=== PATIENT | female | born 1930 | race Caucasian/White ===

== ENCOUNTER 2017-05-01 18:32 | Inpatient (IN) | payer OTHER ==
[~2017-05-01] VITALS: Ht 157.5 cm; Wt 79.6 kg
[2017-05-01] MEDS ORDERED: fentaNYL PF VIAL 100 MCG/2 ML VIAL ONE (19:12)
[2017-05-01] MEDS: fentaNYL PF VIAL 100 MCG/2 ML VIAL IV PRN ×6 (19:19→23:10)
--- NOTE | 2017-05-01 19:57 | RAD ---
PQRS Compliance Statement: One or more of the following individualized dose reduction techniques were utilized for this examination: 1. Automated exposure control 2. Adjustment of the mA and/or kV according to patient size 3. Use of iterative reconstruction technique CT HEAD AND CERVICAL SPINE WITHOUT CONTRAST History: fall injury to head Comparison: None. Procedure: Axial images are obtained of the head from the skull base through the vertex without IV contrast. Noncontrast helical CT of the cervical spine was performed. Axial, sagittal, and coronal reconstructions were obtained. Findings: The ventricles and sulci are prominent, consistent with age-related cerebral atrophy. There is scattered periventricular white matter hypoattenuation. This is a nonspecific finding but is commonly due to chronic small vessel ischemic disease in a patient of this age. No mass-effect, midline shift, hemorrhage or obvious acute infarction is identified. Basilar cisterns are patent. Bone windows demonstrate no significant calvarial abnormality. There is severe high left frontal scalp hematoma. The visualized paranasal sinuses are clear. Mastoid air cells are well aerated. There is no evidence of acute fracture or acute malalignment. Minimal grade 1 anterolisthesis of C3 on C4. Alignment is otherwise maintained. The facet joints are intact, mildly hypertrophic. Geographic sclerosis left lateral mass of C1 may be a bone island. Visualized soft tissues of the neck demonstrate no significant abnormalities. The visualized lung apices are clear. IMPRESSION: 1. No acute intracranial abnormality. 2. Large high left frontal scalp hematoma. 3. No acute fracture of the cervical spine. Electronically signed by: Himanshu Solorzano MD (05/01/2017 7:54 PM)
[2017-05-01] MEDS ORDERED: fentaNYL PF VIAL 100 MCG/2 ML VIAL IV PRN (21:15)
[2017-05-01 21:56] LABS: BASO # 0.1 x10^3/uL (0.0-0.2); BASO % 1 % (0-3); EOS % 0 % (0-3); HEMATOCRIT 36.3 % (36.0-47.0); LYMPH # 0.8 x10^3/uL (1.0-4.8); LYMPH % 8 % (24-48); MEAN CORPUSCULAR HEMOGLOBIN 28 pg (25-35); MEAN CORPUSCULAR HGB CONC 33 g/dL (31-37); MEAN CORPUSCULAR VOLUME 86 fL (79-100); MONO % 4 % (0-9); NEUT % 87 % (31-73); PLATELET COUNT 204 x10^3/uL (140-400); RED BLOOD COUNT 4.25 x10^6/uL (3.50-5.40); RED CELL DISTRIBUTION WIDTH 15.6 % (11.5-14.5); WHITE BLOOD COUNT 10.1 x10^3/uL (4.0-11.0)
[2017-05-01] MEDS ORDERED: MORPHINE SULFATE 2 MG/ML DISP.SYRIN. IV PRN (22:00)
[2017-05-01] MEDS ORDERED: PROCHLORPERAZINE 25 MG SUPP.RECT. PR PRN (22:00)
[2017-05-01] MEDS ORDERED: hydrALAZINE 20 MG/ML VIAL. IVP PRN (22:00)
[2017-05-01] MEDS ORDERED: CALCIUM CARBONATE 500 MG TAB.CHEW PO PRN (22:00)
[2017-05-01] MEDS ORDERED: LACTULOSE 20 GM/30 ML SOLUTION. PO PRN (22:00)
[2017-05-01] MEDS ORDERED: BISACODYL 10 MG SUPP.RECT. PR PRN (22:00)
[2017-05-01] MEDS ORDERED: PROCHLORPERAZINE 10 MG/2 ML VIAL. IV PRN (22:00)
[2017-05-01] MEDS ORDERED: MAGNESIUM HYDROXIDE 2,400 MG/30 ML ORAL.SUSP. PO PRN (22:00)
[2017-05-01] MEDS ORDERED: MAG HYDROX/ALUMINUM HYD/SIMETH 30 ML ORAL.SUSP PO PRN (22:00)
[2017-05-01] MEDS ORDERED: IBUPROFEN 400 MG TABLET. PO PRN (22:00)
[2017-05-01] MEDS ORDERED: ACETAMINOPHEN 325 MG TABLET. PO PRN (22:00)
[2017-05-01 22:07] LABS: CALCIUM 9.8 mg/dL (8.5-10.1); CREATININE 1.1 mg/dL (0.6-1.0); GFR 47.1; POTASSIUM 3.7 mmol/L (3.5-5.1)
[2017-05-01 22:08] LABS: INR 1.1 (0.8-1.1); PROTHROMBIN TIME PATIENT 13.2 SEC (11.7-14.0)
[2017-05-01 22:13] LABS: ALBUMIN 3.6 g/dL (3.4-5.0); ALBUMIN/GLOBULIN RATIO 0.9 (1.0-1.7); TOTAL BILIRUBIN 0.7 mg/dL (0.2-1.0); TOTAL PROTEIN 7.6 g/dL (6.4-8.2)
--- NOTE | 2017-05-01 22:36 | PDOC1 ---
History and Physical Date of Admission Date of Admission DATE: 05/01/17 TIME: 22:29 Identification/Chief Complaint Chief Complaint fall Problems: Source Source: Caregiver, Chart review, Patient History of Present Illness History of Present Illness 87 y/o female, who usually goes to , tripped on her back yard today , hit her head, no LOC, sustained a left frontal hematoma that is visible and actually has come down in size per family at bedside. Hit her left arm and xray shows a humeral fx, Pt then admitted, Course in ER, has been requiring significant doses of fentanyl. PAst medical is only HTN and hypothyroidism, takes only 3 Prescription meds. PAin level now 8./10, VS ok. C spine is neg for fx,. NO assistive device at home,. NO known lung or heart probs. Non smoker, non drinker Itches with codeine and toradol Seen at ER [address] head and xray Rt arm Past Medical History Cardiovascular: HTN Endocrine: Hypothyroidism Past Surgical History Past Surgical History: Other (back sx??) Family History Family History: Hypertension Social History Smoke: No ALCOHOL: none Drugs: None Current Medications Current Medications Current Medications Fentanyl Citrate (Fentanyl 2ml Vial) 25 mcg PRN Q15MIN PRN IV PAIN GREATER THAN 3/10 Last administered on 05/01/17t 22:08; Start 05/01/17 at 19:00; Stop at 18:59 Fentanyl Citrate (Fentanyl 2ml Vial) 100 mcg STK-MED ONCE .ROUTE ; Start at 19:12; Stop 05/01/17 at 19:13; Status DC Fentanyl Citrate (Fentanyl 2ml Vial) 25 mcg PRN Q15MIN PRN IV PAIN GREATER THAN 3/10; Start 05/01/17 at 21:15; Stop 05/02/17 at 21:14 Hydralazine HCl (Apresoline) 10 mg PRN Q4HRS PRN IVP 160/100; Start 05/01/17 at 22:00 Ondansetron HCl (Zofran) 4 mg PRN Q6HRS PRN IV NAUSEA/VOMITING; Start 05/01/17 at 22:00 Prochlorperazine Edisylate (Compazine) 10 mg PRN Q6HRS PRN IV NAUSEA/VOMITING; Start 05/01/17 at 22:00 Prochlorperazine (Compazine) 25 mg PRN Q12HR PRN [place] NAUSEA/VOMITING; Start at 22:00 Al Hydroxide/Mg Hydroxide (Mylanta Plus Xs) 30 ml PRN Q3HRS PRN PO HEARTBURN / GAS; Start 05/01/17 at 22:00 Calcium Carbonate/ Glycine (Tums) 500 mg PRN Q3HRS PRN PO UPSET STOMACH; Start 05/01/17 at 22:00 Oxycodone HCl (Roxicodone) 5 mg PRN Q3HRS PRN PO BREAKTHROUGH PAIN; Start 05/01 at 22:00; Status UNV Morphine Sulfate 2 mg PRN Q2HR PRN IV PAIN; Start 05/01/17 at 22:00; Stop 05/01 at 22:01; Status DC Oxycodone/ Acetaminophen (Percocet 5/325) 1 tab PRN Q4HRS PRN PO MILD PAIN, 1ST CHOICE; Start 05/01/17 at 22:00; Status UNV Acetaminophen (Tylenol) 650 mg PRN Q6HRS PRN PO Headaches, Temp > 101.5F; Start 05/01/17 at 22:00 Ibuprofen (Motrin) 400 mg PRN Q6HRS PRN PO MILD PAIN; Start 05/01/17 at 22:00; Stop 05/01/17 at 22:01; Status DC Magnesium Hydroxide (Milk Of Magnesia) 2,400 mg PRN Q12HR PRN PO CONSTIPATION; Start 05/01/17 at 22:00 Lactulose 20 gm PRN Q12HR PRN PO CONSTIPATION; Start 05/01/17 at 22:00 Bisacodyl (Dulcolax Supp) 10 mg PRN DAILY PRN [place] CONSTIPATION; Start 05/01/17 at 22:00 Enoxaparin Sodium (Lovenox 40mg Syringe) 40 mg QHS SQ ; Start 05/01/17 at 23:00 Fentanyl Citrate (Fentanyl 2ml Vial) 50 mcg PRN Q2HR PRN IV SEVERE PAIN; Start 05/01/17 at 22:00 Allergies Allergies: Coded Allergies: codeine (Verified Allergy, Intermediate, 05/01/17) ketorolac (Verified Allergy, Intermediate, 05/01/17) levofloxacin (Verified Allergy, Intermediate, 05/01/17) ROS General: No: Chills, Night Sweats, Fatigue, Malaise, Appetite, Other PSYCHOLOGICAL ROS: No: Anxiety, Behavioral Disorder, Concentration difficultie , Decreased libido, Depression, Disorientation, Hallucinations, Hostility, Irritablity, Memory difficulties, Mood Swings, Obsessive thoughts, Physical abuse, Sexual abuse, Sleep disturbances, Suicidal ideation, Other Eyes: No Blurry vision, No Decreased vision, No Double vision, No Dry eyes, No Excessive tearing, No Eye Pain, No Itchy Eyes, No Loss of vision, No Photophobia , No Scotomata, No Uses contacts, No Uses glasses, No Other HEENT: No: Heacaches, Visual Changes, Hearing change, Nasal congestion, Nasal discharge, Oral lesions, Sinus pain, Sore Throat, Epistaxis, Sneezing, Snoring, Tinnitus, Vertigo, Vocal changes, Other ALLERGY AND IMMUNOLOGY: No: Hives, Insect Bite Sensitivity, Itchy/Watery Eyes, Nasal Congestion, Post Nasal Drip, Seasonal Allergies, Other Hematological and Lymphatic: No: Bleeding Problems, Blood Clots, Blood Transfusions, Brusing, Night Sweats, Pallor, Swollen Lymph Nodes, Other ENDOCRINE: No: Breast Changes, Galactorrhea, Hair Pattern Changes, Hot Flashes , Malaise/lethargy, Mood Swings, Palpitations, Polydipsia/polyuria, Skin Changes , Temperature Intolerance, Unexpected Weight Changes, Other Breast: No New/Changing Breast Lumps, No Nipple changes, No Nipple discharge, No Other Respiratory: No: Cough, Hemoptysis, Orthopnea, Pleuritic Pain, Shortness of breath, SOB with excertion, Sputum Changes, Stridor, Tachypnea, Wheezing, Other Cardiovascular: No Chest Pain, No Palpitations, No Orthopnea, No Paroxysmal Noc. Dyspnea, No Edema, No Lt Headedness, No Other Gastrointestinal: No Nausea, No Vomiting, No Abdominal Pain, No Diarrhea, No Constipation, No Melena, No Hematochezia, No Other Genitourinary: No Dysuria, No Frequency, No Incontinence, No Hematuria, No Retention, No Discharge, No Urgency, No Pain, No Flank Pain, No Other, No , No , No , No , No , No , No Musculoskeletal: Yes Other (per HPI) Neurological: No Behavorial Changes, No Bowel/Bladder ControlChng, No Confusion , No Dizziness, No Gait Disturbance, No Headaches, No Impaired Coord/balance, No Memory Loss, No Numbness/Tingling, No Seizures, No Speech Problems, No Tremors, No Visual Changes, No Weakness, No Other Skin: No Dry Skin, No Eczema, No Hair Changes, No Lumps, No Mole Changes, No Mottling, No Nail Changes, No Pruritus, No Rash, No Skin Lesion Changes, No Other, No Acne Physical Exam General: Alert, Oriented X3, Cooperative, No acute distress HEENT: PERRLA, Other (Left frontal scalp hematoma) Lungs: Clear to auscultation Heart: S1S2, RRR, no thrills, no rubs, no gallops, no murmurs Cardiovascular: S1, S2 Breasts: Normal, Rt breast nml w/o mass, Lt breast nml w/o mass, Nipples normal Abdomen: Normal bowel sounds, Soft, No tenderness, No hepatosplenomegaly, No masses Rectal Exam: not examined PELVIC: Nml ext genitalia Extremities: No clubbing, No cyanosis, No edema, Normal pulses, No tenderness/ swelling, Other (Rt arm sling, palpable pulses on jennifer Rt hand/wrist) Skin: No rashes, No breakdown, No significant lesion Neuro: Normal gait, Normal speech, Strength at 5/5 X4 ext, Normal tone, Sensation intact, Cranial nerves 3-12 NL, Reflexes 2+ Psych/Mental Status: Mental status NL, Mood NL Vitals Vitals Vital Signs Date Time Temp Pulse Resp B/P (MAP) Pulse Ox O2 Delivery O2 Flow Rate FiO2 05/01/17 22:09 56 18 124/58 (80) 93 Room Air 05/01/17 18:40 97.7 97.7 Labs Labs Laboratory Tests Test 05/01/17 21:50 White Blood Count 10.1 x10^3/uL (4.0-11.0) Red Blood Count 4.25 x10^6/uL (3.50-5.40) Hemoglobin 12.0 g/dL (12.0-15.5) Hematocrit 36.3 % (36.0-47.0) Mean Corpuscular Volume 86 fL (79-100) Mean Corpuscular Hemoglobin 28 pg (25-35) Mean Corpuscular Hemoglobin Concent 33 g/dL (31-37) Red Cell Distribution Width 15.6 % (11.5-14.5) Platelet Count 204 x10^3/uL (140-400) Neutrophils (%) (Auto) 87 % (31-73) Lymphocytes (%) (Auto) 8 % (24-48) Monocytes (%) (Auto) 4 % (0-9) Eosinophils (%) (Auto) 0 % (0-3) Basophils (%) (Auto) 1 % (0-3) Neutrophils # (Auto) 8.7 x10^3uL (1.8-7.7) Lymphocytes # (Auto) 0.8 x10^3/uL (1.0-4.8) Monocytes # (Auto) 0.4 x10^3/uL (0.0-1.1) Eosinophils # (Auto) 0.0 x10^3/uL (0.0-0.7) Basophils # (Auto) 0.1 x10^3/uL (0.0-0.2) Prothrombin Time 13.2 SEC (11.7-14.0) Prothromb Time International Ratio 1.1 (0.8-1.1) Activated Partial Thromboplast Time 21 SEC (24-38) Sodium Level 135 mmol/L (136-145) Potassium Level 3.7 mmol/L (3.5-5.1) Chloride Level 99 mmol/L (98-107) Carbon Dioxide Level 27 mmol/L (21-32) Anion Gap 9 (6-14) Blood Urea Nitrogen 19 mg/dL (7-20) Creatinine 1.1 mg/dL (0.6-1.0) Estimated GFR (Cockcroft-Gault) 47.1 BUN/Creatinine Ratio 17 (6-20) Glucose Level 173 mg/dL (70-99) Calcium Level 9.8 mg/dL (8.5-10.1) Total Bilirubin 0.7 mg/dL (0.2-1.0) Aspartate Amino Transf (AST/SGOT) 16 U/L (15-37) Alanine Aminotransferase (ALT/SGPT) 14 U/L (14-59) Alkaline Phosphatase 81 U/L (46-116) Total Protein 7.6 g/dL (6.4-8.2) Albumin 3.6 g/dL (3.4-5.0) Albumin/Globulin Ratio 0.9 (1.0-1.7) Laboratory Tests Test 05/01/17 21:50 White Blood Count 10.1 x10^3/uL (4.0-11.0) Red Blood Count 4.25 x10^6/uL (3.50-5.40) Hemoglobin 12.0 g/dL (12.0-15.5) Hematocrit 36.3 % (36.0-47.0) Mean Corpuscular Volume 86 fL (79-100) Mean Corpuscular Hemoglobin 28 pg (25-35) Mean Corpuscular Hemoglobin Concent 33 g/dL (31-37) Red Cell Distribution Width 15.6 % (11.5-14.5) Platelet Count 204 x10^3/uL (140-400) Neutrophils (%) (Auto) 87 % (31-73) Lymphocytes (%) (Auto) 8 % (24-48) Monocytes (%) (Auto) 4 % (0-9) Eosinophils (%) (Auto) 0 % (0-3) Basophils (%) (Auto) 1 % (0-3) Neutrophils # (Auto) 8.7 x10^3uL (1.8-7.7) Lymphocytes # (Auto) 0.8 x10^3/uL (1.0-4.8) Monocytes # (Auto) 0.4 x10^3/uL (0.0-1.1) Eosinophils # (Auto) 0.0 x10^3/uL (0.0-0.7) Basophils # (Auto) 0.1 x10^3/uL (0.0-0.2) Prothrombin Time 13.2 SEC (11.7-14.0) Prothromb Time International Ratio 1.1 (0.8-1.1) Activated Partial Thromboplast Time 21 SEC (24-38) Sodium Level 135 mmol/L (136-145) Potassium Level 3.7 mmol/L (3.5-5.1) Chloride Level 99 mmol/L (98-107) Carbon Dioxide Level 27 mmol/L (21-32) Anion Gap 9 (6-14) Blood Urea Nitrogen 19 mg/dL (7-20) Creatinine 1.1 mg/dL (0.6-1.0) Estimated GFR (Cockcroft-Gault) 47.1 BUN/Creatinine Ratio 17 (6-20) Glucose Level 173 mg/dL (70-99) Calcium Level 9.8 mg/dL (8.5-10.1) Total Bilirubin 0.7 mg/dL (0.2-1.0) Aspartate Amino Transf (AST/SGOT) 16 U/L (15-37) Alanine Aminotransferase (ALT/SGPT) 14 U/L (14-59) Alkaline Phosphatase 81 U/L (46-116) Total Protein 7.6 g/dL (6.4-8.2) Albumin 3.6 g/dL (3.4-5.0) Albumin/Globulin Ratio 0.9 (1.0-1.7) VTE Prophylaxis Ordered VTE Prophylaxis Devices: Yes VTE Pharmacological Prophylaxi: Yes Assessment/Plan Assessment/Plan 1. Rt humeral fx, closed, from mechanical fall 2. hypothyroidism, chronic stable 3. Obesity BMI 31.6 4 HTn, uncontrolled - could be from pain too 5. Left high frontal scalp hematoma - cold then warm compress PLAn: Admit 2 MN NPO post MN Control BP with prns Control pain Ortho consult Can check vit D levels Awaiting home meds Cleared to have sx if needed, risks and benefits explained Seen at ER 13 ALEXANDRA ULRICH MD May 01, 2017 22:36
[2017-05-01 22:45] VITALS: BP 160/66
[2017-05-01 22:48] LABS: PLT ESTIMATE ADEQUATE (ADEQUATE)
[2017-05-01] MEDS: ENOXAPARIN 40 MG/0.4 ML SYRINGE. SQ SCH (23:00)
--- NOTE | 2017-05-02 01:47 | ED.ADGEN ---
Past Medical History Past Medical History: Depression, GERD, Hypertension, Hypothyroid Past Surgical History: Other Additional Past Surgical Histo: left shoulder Alcohol Use: None Drug Use: None Adult General Chief Complaint Chief Complaint: MECHANICAL FALL HPI HPI Patient is a 87 year old year old woman, who presents to the emergency department with a complaint of right shoulder pain after a fall. Patient states that she tripped on a curb and fell forward, landing on her right shoulder she also struck her left forehead. Denies any loss of consciousness, denies any weakness, numbness, tingling, vision changes. Is complaining of severe pain in the right shoulder. Patient is status post a left shoulder replacement. No numbness or tingling in the arm. Denies any previous injuries to the right shoulder. No chest pain, no shortness breath, no preceding symptoms. Patient does not use any blood thinners. Review of Systems Review of Systems Constitutional: Denies fever or chills. [] Eyes: Denies change in visual acuity. [] HENT: Denies nasal congestion or sore throat. [] Respiratory: Denies cough or shortness of breath. [] Cardiovascular: Denies chest pain or edema. [] GI: Denies abdominal pain, nausea, vomiting, bloody stools or diarrhea. [] : Denies dysuria. [] Musculoskeletal: Denies back pain, pain in the right shoulder. Integument: Denies rash. [] Neurologic: Denies headache, focal weakness or sensory changes. [] Endocrine: Denies polyuria or polydipsia. [] Lymphatic: Denies swollen glands. [] Psychiatric: Denies depression or anxiety. [] Current Medications Current Medications Current Medications Medications (Trade) Dose Ordered Sig/Steven Start Time Stop Time Status Last Admin Dose Admin Fentanyl Citrate (Fentanyl 2ml Vial) 25 mcg PRN Q15MIN PRN 05/01/17 21:15 05/02/17 21:14 Allergies Allergies Allergies Coded Allergies Type Severity Reaction Last Updated Verified codeine Allergy Intermediate 05/01/17 Yes ketorolac Allergy Intermediate 05/01/17 Yes levofloxacin Allergy Intermediate 05/01/17 Yes Physical Exam Physical Exam Constitutional: Well developed, well nourished, moderate distress secondary to pain, non-toxic appearance. [] HENT: Normocephalic, patient with a large hematoma on the left forehead, small abrasions noted, no dental involvement, no hematoma of the septum, no hemotympanum, bilateral external ears normal, oropharynx moist, no oral exudates , nose normal. [] Eyes: PERRLA, EOMI, conjunctiva normal, no discharge. [] Neck: No step-offs or deformities, no tenderness, supple, no stridor. [C-collar in place.] Cardiovascular:Heart rate regular rhythm, no murmur, S1, S2, rubs or gallops. [] Lungs & Thorax: Bilateral breath sounds clear to auscultation, no wheezing, rhonchi, rales. No chest wall crepitus or tenderness. [] Abdomen: Bowel sounds normal, soft, no tenderness, no masses, no pulsatile masses. [] Skin: Warm, dry, no erythema, no rash. Abrasions as stated. [] Back: No no midline tenderness, no step-offs or deformities, no CVA tenderness. [] Extremities: Patient with swelling noted in the proximal portion of the right upper extremity, patient with ecchymosis noted over the fingers of the left hand on the card motions are intact in both hands, no tenderness of the wrist, patient complains of pain just above the elbow extending up into the glenohumeral fossa, pulses and sensation are intact throughout, no cyanosis, no clubbing, ROM intact, no edema. [] Neurologic: Alert and oriented X 3, normal motor function, normal sensory function, no focal deficits noted. [] Psychologic: Affect normal, judgement normal, mood normal. [] Current Patient Data Vital Signs Vital Signs Date Time Temp Pulse Resp B/P (MAP) Pulse Ox O2 Delivery O2 Flow Rate FiO2 05/01/17 21:22 18 05/01/17 20:55 96 05/01/17 19:45 58 177/81 (113) Room Air 05/01/17 18:40 97.7 97.7 EKG EKG EC: Sinus rhythm, heart rate 55 beats minute, upright axis, QTC of 78, RI 166, QTC of 437, T-wave inversions noted in the lateral leads and anterior leads, contour normality is also noted in the inferior leads, no ST elevations or depressions, abnormal ECG, does not meet STEMI criteria. As interpreted by me. Radiology/Procedures Radiology/Procedures [][facility] [address] [place] [address] IMAGING REPORT Signed PATIENT: LORA BURNETT ACCOUNT: [id number] : 1930 LOCATION: ER AGE: 87 SEX: F EXAM STATUS: REG ER ORD. PHYSICIAN: BEBA NICHOLAS DO REASON: Fall/closed head injury PROCEDURE: CT HEAD AND CERVICAL SPINE WO RS Compliance Statement: One or more of the following individualized dose reduction techniques were utilized for this examination: 1. Automated exposure control 2. Adjustment of the mA and/or kV according to patient size 3. Use of iterative reconstruction technique CT HEAD AND CERVICAL SPINE WITHOUT CONTRAST History: fall injury to head Comparison: None. Procedure: Axial images are obtained of the head from the skull base through the vertex without IV contrast. Noncontrast helical CT of the cervical spine was performed. Axial, sagittal, and coronal reconstructions were obtained. Findings: The ventricles and sulci are prominent, consistent with age-related cerebral atrophy. There is scattered periventricular white matter hypoattenuation. This is a nonspecific finding but is commonly due to chronic small vessel ischemic disease in a patient of this age. No mass-effect, midline shift, hemorrhage or obvious acute infarction is identified. Basilar cisterns are patent. Bone windows demonstrate no significant calvarial abnormality. There is severe high left frontal scalp hematoma. The visualized paranasal sinuses are clear. Mastoid air cells are well aerated. There is no evidence of acute fracture or acute malalignment. Minimal grade 1 anterolisthesis of C3 on C4. Alignment is otherwise maintained. The facet joints are intact, mildly hypertrophic. Geographic sclerosis left lateral mass of C1 may be a bone island. Visualized soft tissues of the neck demonstrate no significant abnormalities. The visualized lung apices are clear. IMPRESSION: 1. No acute intracranial abnormality. 2. Large high left frontal scalp hematoma. 3. No acute fracture of the cervical spine. Electronically signed by: Himanshu Solorzano MD (05/01/2017 7:54 PM) DICTATED and SIGNED BY: HIMANSHU SOLORZANO MD DATE: 05/01/171947 CC: BEBA NICHOLAS DO; LEVI MURRELL MSN, RN, INFERTILITY MEDICAL ASSISTANT ~ Chest x-ray: One view: Normal cardiopulmonary silhouette, calcification of the aorta, no infiltrates, no effusions, no acute soft tissue or bony abnormalities identified. As interpreted by me. Right shoulder: 2 view: Patient with a nondisplaced fracture of the proximal humerus, mild soft tissue swelling noted, as interpreted by me. Right elbow: Three-view: No fracture or dislocation identified, no soft tissue or bony abnormalities. As interpreted by me. Left hand: Three-view: No fracture or dislocation, no soft tissue or bony abnormalities identified. As interpreted by me. Course & Med Decision Making Course & Med Decision Making Pertinent Labs and Imaging studies reviewed. (See chart for details) Patient received imaging of the head and neck, concern for distracting injury, with large hematoma noted over the left forehead, with concern for fracture of the right upper extremity. X-rays revealed a nondisplaced fracture of the proximal humerus on the right, no other abnormalities identified. C-collar was cleared in the ED without issue. Patient received multiple aliquots of fentanyl IV in the ED with improvement of her symptoms over she remains very uncomfortable, a shoulder immobilizer was placed with good effect with improvement of symptoms. Patient remains neurovascularly intact. Patient is agreeable for admission to the hospital for continued IV management of analgesia , and orthopedics evaluation. I did speak with Yas, physician residential real estate assistant on- call for Dr. Theodore of orthopedics, will admit the patient to the hospitalist service, to be seen by orthopedics in the morning. We'll maintain the shoulder immobilizer until that point. Findings as above discussed with Dr. Martinez internal medicine, patient evaluated in the emergency department, and accepted to her service as a full admission to the medical telemetry floor with plan as above. Bridge orders entered per discussion. Dragon Disclaimer Dragon Disclaimer This electronic medical record was generated, in whole or in part, using a voice recognition dictation system. Departure Impression: Primary Impression: Proximal humerus fracture Additional Impression: Fall Disposition: ADMITTED INPATIENT Admitting Physician: Sandra Martinez Condition: IMPROVED Problem Qualifiers BEBA NICHOLAS DO May 02, 2017 01:47
--- NOTE | 2017-05-02 01:51 | ACF ---
Admission Forms Criteria MUSCULOSKELETAL DISEASE GRG Clinical Indications for Admission to Inpatient Care (Place 'X' for any and all applicable criteria): Hospital admission is needed for appropriate care of the patient because of 1 or more of the following: [X]I. Fracture, dislocation, or other musculoskeletal injury requiring inpatient care(medical) as indicated by 1 or more of the following(4)(5)(6)(7) [ ]a) Vertebral fracture requiring observation for instability or neurologic compromise (8) [ ]b) Compartment syndrome (proven or cannot be ruled out during observation level of care) (9) [ ]c) Limb-threatening injury [ ]d) Major injury requiring inpatient stabilization such as traction initiation or external fixation before internal fixation or closure of complex or open fracture [ ]e) Major injury requiring inpatient treatment after emergency or observation level care (as appropriate) [X]f) Severe pain requiring acute inpatient management [ ]g) Injury with suspicion of abuse or neglect (eg., child, dependent elderly) [ ]II. Newly diagnosed or suspected bone, joint, or orthopedic device infection (e.g., osteomyelitis, septic arthritis) needing 1 or more of the following(1)(2)(3) [ ]a) IV antibiotics that cannot be initiated in other than inpatient setting (e.g., patient too unstable or home infusion not available) [ ]b) Device removal or replacement [ ]c) Bone or soft tissue debridement [ ]d) Joint drainage (drain placement or repetitive aspirations) [ ]III. Severe rheumatologic disease (e.g., systemic lupus erythematosus, rheumatoid arthritis) with complications or comorbidities (Also use Optimal Recovery Care Criteria or General Recovery Criteria as appropriate on the basis of predominant condition), including 1 or more of the following( 10)(11)(12)(13) [ ]a) Severe infection (e.g., RUG SHAMPOOER infection, sepsis) (14) [ ]b) Respiratory complications, including 1 or more of the following : [ ]i) Pleural effusion with respiratory compromise [ ]ii) Pulmonary hypertension with congestive failure [ ]iii) Respiratory failure [ ]iv) Pulmonary hemorrhage (15) [ ]c) Hematologic disease, including 1 or more of the following: [ ]i) Coagulopathy with bleeding [ ]ii) Thrombosis with hypercoagulable state [ ]iii) Thrombotic thrombocytopenic purpura [ ]d) Cerebritis with seizures, psychosis, or other severe abnormalities [ ]e) Vertebral destruction with monitoring needed for cervical myelopathy& possible respiratory compromise [ ]f) Exacerbation that requires inpatient treatment (e.g., intravenous immunosuppression) (16) [ ]g) Acute renal failure [ ]h) Cerebritis with seizures, psychosis, Altered mental status, or other neurologic abnormalities [ ]i) Pericardial effusion with tamponade [ ]j) Vertebral destruction, with monitoring needed for cervical myelopathy and possible respiratory compromise [ ]IV. Severe vasculitis with complications or comorbidities (Also use Optimal Recovery Care Criteria General Recovery Criteria as appropriate on the basis of predominant condition), including 1 or more of the following(11)(12)(17)(18)(19)(20) [ ]a) Exacerbation that requires inpatient treatment (e.g., intravenous immunosuppression) (19)(21) [ ]b) Pulmonary hemorrhage (15) [ ]c) RUG SHAMPOOER vasculitis with seizures, psychosis, Altered mental status that is severe or persistent, or other severe abnormalities (22) [ ]d) Cerebral infarction [ ]e) Gastrointestinal ischemia [ ]f) Gangrene or threatened amputation [ ]g) Renal failure (16) [ ]h) Other significant complications of vasculitis ( eg., tissue or organ ischemia, organ dysfunction ) [ ]V. Severe myopathy as indicated by 1 or more of the following (28)(29) [ ]a) New onset of airway compromise or inability to swallow [ ]b) Respiratory deterioration with observation needed for impending respiratory failure [ ]c) Exacerbation that requires inpatient treatment (e.g., intravenous immunosuppression) [ ]. Severe crystal gout (arthropathy) indicated by 1 or more of the following (23)(24) [ ]a) Severe pain requiring acute inpatient management [ ]b) Exacerbation that requires inpatient treatment (e.g., intravenous treatment) [ ]VII.Rhabdomyolysis and 1 or more of the following (25)(26)(27) [ ]a) Acute renal failure [ ]b) Need for intravenous hydration after emergency or observation level care (as appropriate) [ ]c) Inability to maintain oral hydration [ ]d) Change in mental status [ ]e) Electrolyte abnormality that remains after emergency or observation level care (as appropriate) [ ]VIII Post amputation complication, as indicated by ANY ONE of the following [ ]a) Infection [ ]b) Dehiscence [ ]c) Myodesis failure [ ]IX. Severe pain requiring acute inpatient management due to musculoskeletal condition [ ]X. Musculoskeletal Disease and ALL of the following: [ ]a) Symptom or finding for which emergency and observation care have failed or are not considered appropriate (Use General Criteria: Observation Care as appropriate) [ ]b) Presence of ANY ONE of the following [ ]i) A General Admission Criteria [ ]ii) A Pediatric General Admission Criteria The original [facility] [employer] content created by [facility] has been revised. The portions of the content which have been revised are identified through the use of italic text or in bold, and [facility] has neither reviewed nor approved the modified material. All other unmodified content is copyright [facility]. Please see references footnoted in the original [facility] edition 2016 Admission Criteria Met?: Yes MAXI CHAVIRA May 02, 2017 01:51
[2017-05-02] MEDS: fentaNYL PF VIAL 100 MCG/2 ML VIAL IV PRN ×9 (01:54→23:10)
[2017-05-02 03:00] VITALS: BP 124/61
[2017-05-02] MEDS: ONDANSETRON PF 4 MG/2 ML VIAL. IV PRN ×2 (06:18→18:08)
[2017-05-02 07:00] VITALS: BP 137/65
--- NOTE | 2017-05-02 07:13 | EKG ---
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
--- NOTE | 2017-05-02 07:46 | RAD ---
Right ELBOW AP LATERAL AND OBLIQUE Clinical Indication: pain/fall Comparison: None. Findings: There is no acute fracture or dislocation. Punctate well-corticated ossific density is seen adjacent to the volar and lateral radial head. A donor site is not demonstrated. There is no joint effusion. The soft tissues are normal. IMPRESSION: No acute fracture or dislocation.
--- NOTE | 2017-05-02 07:49 | RAD ---
LEFT HAND, VIEWS 3 Indication: fall/pain Findings: There is no acute fracture or dislocation. There is no bony erosion. Diffuse demineralization. Mild degenerative changes for patient age. There is no radiographically apparent soft tissue swelling or radiopaque foreign body. There is increased density projecting over the distal radius that could be methylmethacrylate but does not appear to localize to the bone on the lateral view. IMPRESSION: No acute fracture or dislocation.
--- NOTE | 2017-05-02 07:54 | RAD ---
RIGHT SHOULDER , 3 VIEWS Clinical Indication: Fall/pain Comparison: None. Findings: There is acute traumatic fracture of the surgical neck of the humerus. Distal fracture fragment is medially displaced. There is also acute traumatic fracture of the greater tuberosity. Greater tuberosity is displaced laterally and superiorly. There is a sclerotic density in the humeral head that may be a bone island or enchondroma, assuming patient does not have history of osteoblastic metastases. Widening of the acromiohumeral distance may be due to joint effusion. The visualized lung is clear. There is no evidence of an acute displaced rib fracture. Mild acromioclavicular arthropathy. There is no soft tissue abnormality. IMPRESSION: Acute traumatic fracture of the surgical neck of the humerus and greater tuberosity.
--- NOTE | 2017-05-02 07:55 | RAD ---
HUMERUS RIGHT Clinical Indication: pain/fall Comparison: Right shoulder, same day. Findings: Please refer to right shoulder radiograph report for details of the proximal humerus fracture. There is no acute fracture of the more distal humerus. No obvious elbow deformity. Soft tissues of the upper arm unremarkable. IMPRESSION: No acute fracture of the more distal humerus.
--- NOTE | 2017-05-02 08:53 | RAD ---
AP PORTABLE CHEST Clinical Indication: fall. Right shoulder pain, fracture. Comparison: None. Findings: Atherosclerotic aortic arch. Cardiac size normal. Lungs are clear. There is no pneumothorax. No pleural effusion is appreciated. Left shoulder arthroplasty. IMPRESSION: No acute cardiopulmonary process.
--- NOTE | 2017-05-02 10:23 | PDOC ---
PROGRESS NOTES Chief Complaint Chief Complaint 1. Rt humeral fx, closed, from mechanical fall 2. hypothyroidism, chronic stable 3. Obesity BMI 31.6 4 HTn, uncontrolled - could be from pain too 5. Left high frontal scalp hematoma - cold then warm compress History of Present Illness History of Present Illness Better PAin under control Still NPO, waiting for ortho rounds LEft frontal hematoma is further coming down PLAn: Await ortho rounds Keep NPO and iVF for now Awaiting still home meds (HTN and synthroid dose) Dw family, RN and pt Vitals Vitals Vital Signs Date Time Temp Pulse Resp B/P (MAP) Pulse Ox O2 Delivery O2 Flow Rate FiO2 05/02/17 10:17 16 94 Room Air 05/02/17 07:00 97.7 62 137/65 (89) 97.7 Physical Exam General: Alert, Oriented X3, Cooperative, No acute distress Abdomen: Normal bowel sounds, Soft, No tenderness, No hepatosplenomegaly, No masses Extremities: No clubbing, No cyanosis, No edema, Normal pulses, No tenderness/ swelling, Other (Rt arm sling, palpable pulses on jennifer Rt hand/wrist) Skin: No rashes, No breakdown, No significant lesion Labs LABS Laboratory Tests Test 05/01/17 21:50 White Blood Count 10.1 x10^3/uL (4.0-11.0) Red Blood Count 4.25 x10^6/uL (3.50-5.40) Hemoglobin 12.0 g/dL (12.0-15.5) Hematocrit 36.3 % (36.0-47.0) Mean Corpuscular Volume 86 fL (79-100) Mean Corpuscular Hemoglobin 28 pg (25-35) Mean Corpuscular Hemoglobin Concent 33 g/dL (31-37) Red Cell Distribution Width 15.6 % (11.5-14.5) Platelet Count 204 x10^3/uL (140-400) Neutrophils (%) (Auto) 87 % (31-73) Lymphocytes (%) (Auto) 8 % (24-48) Monocytes (%) (Auto) 4 % (0-9) Eosinophils (%) (Auto) 0 % (0-3) Basophils (%) (Auto) 1 % (0-3) Neutrophils # (Auto) 8.7 x10^3uL (1.8-7.7) Lymphocytes # (Auto) 0.8 x10^3/uL (1.0-4.8) Monocytes # (Auto) 0.4 x10^3/uL (0.0-1.1) Eosinophils # (Auto) 0.0 x10^3/uL (0.0-0.7) Basophils # (Auto) 0.1 x10^3/uL (0.0-0.2) Segmented Neutrophils % 86 % (35-66) Band Neutrophils % 1 % (0-9) Lymphocytes % 8 % (24-48) Monocytes % 5 % (0-10) Platelet Estimate Adequate (ADEQUATE) Prothrombin Time 13.2 SEC (11.7-14.0) Prothromb Time International Ratio 1.1 (0.8-1.1) Activated Partial Thromboplast Time 21 SEC (24-38) Sodium Level 135 mmol/L (136-145) Potassium Level 3.7 mmol/L (3.5-5.1) Chloride Level 99 mmol/L (98-107) Carbon Dioxide Level 27 mmol/L (21-32) Anion Gap 9 (6-14) Blood Urea Nitrogen 19 mg/dL (7-20) Creatinine 1.1 mg/dL (0.6-1.0) Estimated GFR (Cockcroft-Gault) 47.1 BUN/Creatinine Ratio 17 (6-20) Glucose Level 173 mg/dL (70-99) Calcium Level 9.8 mg/dL (8.5-10.1) Total Bilirubin 0.7 mg/dL (0.2-1.0) Aspartate Amino Transf (AST/SGOT) 16 U/L (15-37) Alanine Aminotransferase (ALT/SGPT) 14 U/L (14-59) Alkaline Phosphatase 81 U/L (46-116) Total Protein 7.6 g/dL (6.4-8.2) Albumin 3.6 g/dL (3.4-5.0) Albumin/Globulin Ratio 0.9 (1.0-1.7) Review of Systems Review of Systems no inc in pain, soa, chest pain etc Assessment and Plan Assessmemt and Plan Problems Medical Problems: (1) Proximal humerus fracture Status: Acute Problems: Comment Review of Relevant I have reviewed the following items luis (where applicable) has been applied. Labs Laboratory Tests Test 05/01/17 21:50 White Blood Count 10.1 x10^3/uL (4.0-11.0) Red Blood Count 4.25 x10^6/uL (3.50-5.40) Hemoglobin 12.0 g/dL (12.0-15.5) Hematocrit 36.3 % (36.0-47.0) Mean Corpuscular Volume 86 fL (79-100) Mean Corpuscular Hemoglobin 28 pg (25-35) Mean Corpuscular Hemoglobin Concent 33 g/dL (31-37) Red Cell Distribution Width 15.6 % (11.5-14.5) Platelet Count 204 x10^3/uL (140-400) Neutrophils (%) (Auto) 87 % (31-73) Lymphocytes (%) (Auto) 8 % (24-48) Monocytes (%) (Auto) 4 % (0-9) Eosinophils (%) (Auto) 0 % (0-3) Basophils (%) (Auto) 1 % (0-3) Neutrophils # (Auto) 8.7 x10^3uL (1.8-7.7) Lymphocytes # (Auto) 0.8 x10^3/uL (1.0-4.8) Monocytes # (Auto) 0.4 x10^3/uL (0.0-1.1) Eosinophils # (Auto) 0.0 x10^3/uL (0.0-0.7) Basophils # (Auto) 0.1 x10^3/uL (0.0-0.2) Segmented Neutrophils % 86 % (35-66) Band Neutrophils % 1 % (0-9) Lymphocytes % 8 % (24-48) Monocytes % 5 % (0-10) Platelet Estimate Adequate (ADEQUATE) Prothrombin Time 13.2 SEC (11.7-14.0) Prothromb Time International Ratio 1.1 (0.8-1.1) Activated Partial Thromboplast Time 21 SEC (24-38) Sodium Level 135 mmol/L (136-145) Potassium Level 3.7 mmol/L (3.5-5.1) Chloride Level 99 mmol/L (98-107) Carbon Dioxide Level 27 mmol/L (21-32) Anion Gap 9 (6-14) Blood Urea Nitrogen 19 mg/dL (7-20) Creatinine 1.1 mg/dL (0.6-1.0) Estimated GFR (Cockcroft-Gault) 47.1 BUN/Creatinine Ratio 17 (6-20) Glucose Level 173 mg/dL (70-99) Calcium Level 9.8 mg/dL (8.5-10.1) Total Bilirubin 0.7 mg/dL (0.2-1.0) Aspartate Amino Transf (AST/SGOT) 16 U/L (15-37) Alanine Aminotransferase (ALT/SGPT) 14 U/L (14-59) Alkaline Phosphatase 81 U/L (46-116) Total Protein 7.6 g/dL (6.4-8.2) Albumin 3.6 g/dL (3.4-5.0) Albumin/Globulin Ratio 0.9 (1.0-1.7) Laboratory Tests Test 05/01/17 21:50 White Blood Count 10.1 x10^3/uL (4.0-11.0) Red Blood Count 4.25 x10^6/uL (3.50-5.40) Hemoglobin 12.0 g/dL (12.0-15.5) Hematocrit 36.3 % (36.0-47.0) Mean Corpuscular Volume 86 fL (79-100) Mean Corpuscular Hemoglobin 28 pg (25-35) Mean Corpuscular Hemoglobin Concent 33 g/dL (31-37) Red Cell Distribution Width 15.6 % (11.5-14.5) Platelet Count 204 x10^3/uL (140-400) Neutrophils (%) (Auto) 87 % (31-73) Lymphocytes (%) (Auto) 8 % (24-48) Monocytes (%) (Auto) 4 % (0-9) Eosinophils (%) (Auto) 0 % (0-3) Basophils (%) (Auto) 1 % (0-3) Neutrophils # (Auto) 8.7 x10^3uL (1.8-7.7) Lymphocytes # (Auto) 0.8 x10^3/uL (1.0-4.8) Monocytes # (Auto) 0.4 x10^3/uL (0.0-1.1) Eosinophils # (Auto) 0.0 x10^3/uL (0.0-0.7) Basophils # (Auto) 0.1 x10^3/uL (0.0-0.2) Segmented Neutrophils % 86 % (35-66) Band Neutrophils % 1 % (0-9) Lymphocytes % 8 % (24-48) Monocytes % 5 % (0-10) Platelet Estimate Adequate (ADEQUATE) Prothrombin Time 13.2 SEC (11.7-14.0) Prothromb Time International Ratio 1.1 (0.8-1.1) Activated Partial Thromboplast Time 21 SEC (24-38) Sodium Level 135 mmol/L (136-145) Potassium Level 3.7 mmol/L (3.5-5.1) Chloride Level 99 mmol/L (98-107) Carbon Dioxide Level 27 mmol/L (21-32) Anion Gap 9 (6-14) Blood Urea Nitrogen 19 mg/dL (7-20) Creatinine 1.1 mg/dL (0.6-1.0) Estimated GFR (Cockcroft-Gault) 47.1 BUN/Creatinine Ratio 17 (6-20) Glucose Level 173 mg/dL (70-99) Calcium Level 9.8 mg/dL (8.5-10.1) Total Bilirubin 0.7 mg/dL (0.2-1.0) Aspartate Amino Transf (AST/SGOT) 16 U/L (15-37) Alanine Aminotransferase (ALT/SGPT) 14 U/L (14-59) Alkaline Phosphatase 81 U/L (46-116) Total Protein 7.6 g/dL (6.4-8.2) Albumin 3.6 g/dL (3.4-5.0) Albumin/Globulin Ratio 0.9 (1.0-1.7) Medications Current Medications Fentanyl Citrate (Fentanyl 2ml Vial) 25 mcg PRN Q15MIN PRN IV PAIN GREATER THAN 3/10 Last administered on 05/01/17t 22:08; Start 05/01/17 at 19:00; Stop at 18:59 Fentanyl Citrate (Fentanyl 2ml Vial) 100 mcg STK-MED ONCE .ROUTE ; Start at 19:12; Stop 05/01/17 at 19:13; Status DC Fentanyl Citrate (Fentanyl 2ml Vial) 25 mcg PRN Q15MIN PRN IV PAIN GREATER THAN 3/10; Start 05/01/17 at 21:15; Stop 05/02/17 at 21:14 Hydralazine HCl (Apresoline) 10 mg PRN Q4HRS PRN IVP 160/100; Start 05/01/17 at 22:00 Ondansetron HCl (Zofran) 4 mg PRN Q6HRS PRN IV NAUSEA/VOMITING Last administered on 05/02/17 06:18; Start 05/01/17 at 22:00 Prochlorperazine Edisylate (Compazine) 10 mg PRN Q6HRS PRN IV NAUSEA/VOMITING; Start 05/01/17 at 22:00 Prochlorperazine (Compazine) 25 mg PRN Q12HR PRN [place] NAUSEA/VOMITING; Start at 22:00 Al Hydroxide/Mg Hydroxide (Mylanta Plus Xs) 30 ml PRN Q3HRS PRN PO HEARTBURN / GAS; Start 05/01/17 at 22:00 Calcium Carbonate/ Glycine (Tums) 500 mg PRN Q3HRS PRN PO UPSET STOMACH; Start 05/01/17 at 22:00 Oxycodone HCl (Roxicodone) 5 mg PRN Q3HRS PRN PO BREAKTHROUGH PAIN; Start 05/01 at 22:00 Morphine Sulfate 2 mg PRN Q2HR PRN IV PAIN; Start 05/01/17 at 22:00; Stop 05/01 at 22:01; Status DC Oxycodone/ Acetaminophen (Percocet 5/325) 1 tab PRN Q4HRS PRN PO MILD PAIN, 1ST CHOICE Last administered on 05/02/17 00:00; Start 05/01/17 at 22:00 Acetaminophen (Tylenol) 650 mg PRN Q6HRS PRN PO Headaches, Temp > 101.5F; Start 05/01/17 at 22:00 Ibuprofen (Motrin) 400 mg PRN Q6HRS PRN PO MILD PAIN; Start 05/01/17 at 22:00; Stop 05/01/17 at 22:01; Status DC Magnesium Hydroxide (Milk Of Magnesia) 2,400 mg PRN Q12HR PRN PO CONSTIPATION; Start 05/01/17 at 22:00 Lactulose 20 gm PRN Q12HR PRN PO CONSTIPATION; Start 05/01/17 at 22:00 Bisacodyl (Dulcolax Supp) 10 mg PRN DAILY PRN [place] CONSTIPATION; Start 05/01/17 at 22:00 Enoxaparin Sodium (Lovenox 40mg Syringe) 40 mg QHS SQ ; Start 05/01/17 at 23:00 Fentanyl Citrate (Fentanyl 2ml Vial) 50 mcg PRN Q2HR PRN IV SEVERE PAIN Last administered on 05/02/17t 10:17; Start 05/01/17 at 22:00 Vitals/I & O Vital Sign - Last 24 Hours 05/01/17 05/01/17 05/01/17 05/01/17 18:40 19:19 19:45 19:45 Temp 97.7 97.7 Pulse 55 58 Resp 22 24 B/P (MAP) 153/73 (99) 177/81 (113) Pulse Ox 97 96 100 100 O2 Delivery Room Air Room Air Room Air 05/01/17 05/01/17 05/01/17 05/01/17 20:55 21:22 22:08 22:09 Pulse 56 Resp 18 18 18 18 B/P (MAP) 124/58 (80) Pulse Ox 96 93 93 O2 Delivery Room Air Room Air 05/01/17 05/01/17 05/01/17 05/02/17 22:45 22:45 23:10 00:00 Temp 98.1 98.1 Pulse 56 Resp 18 B/P (MAP) 160/66 (97) Pulse Ox 92 93 93 O2 Delivery Room Air Room Air Room Air Room Air 05/02/17 05/02/17 05/02/17 05/02/17 01:00 01:54 03:00 04:08 Temp 97.5 97.5 Pulse 63 Resp 18 B/P (MAP) 124/61 (82) Pulse Ox 93 93 92 92 O2 Delivery Room Air Room Air Room Air Room Air 05/02/17 05/02/17 05/02/17 05/02/17 06:12 06:45 07:00 08:00 Temp 97.7 97.7 Pulse 62 Resp 20 B/P (MAP) 137/65 (89) Pulse Ox 92 92 94 O2 Delivery Room Air Room Air Room Air Room Air 05/02/17 05/02/17 05/02/17 08:17 08:47 10:17 Resp 18 16 16 Pulse Ox 94 94 O2 Delivery Room Air Room Air Intake and Output 05/01/17 05/01/17 05/02/17 15:00 23:00 07:00 Intake Total 30 ml Output Total 150 ml Balance -120 ml ALEXANDRA ULRICH MD May 02, 2017 10:23
[2017-05-02 11:00] VITALS: BP 133/65
[2017-05-02] MEDS: oxyCODONE IR 5 MG TABLET PO PRN ×2 (12:34→16:09)
--- NOTE | 2017-05-02 13:07 | PDOC2 ---
CONSULT Date of Consult Date of Consult DATE: 05/02/17 TIME: 12:58 Reason for Consult Reason for Consult: Right shoulder proximal humerus fracture Identification/Chief Complaint Chief Complaint Right shoulder pain after a fall Problems: Source Source: Caregiver, Chart review, Patient History of Present Illness Reason for Visit: This 87-year-old right-handed healthy retired woman was going to her son's birthday alliance party yesterday and fell while still outside. She tripped on the curb. She had immediate severe shoulder pain, and also bumped her head, and was brought to the emergency room. She had no loss of consciousness. She has a history of a left shoulder reverse arthroplasty by Dr. Barron at about a year ago. She is interested in having right shoulder surgery sooner rather than later and is in severe pain so she would rather stay here, unless nothing can be done soon, in which case she would consider being transferred to . Past Medical History Cardiovascular: HTN Endocrine: Hypothyroidism Past Surgical History Past Surgical History: Other (back sx??) Family History Family History: Hypertension Social History Social History She occasionally smokes a cigarette or 2 but is overall nearly a nonsmoker. 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 No ALCOHOL: none Drugs: None Current Problem List Problem List Problems Medical Problems: (1) Proximal humerus fracture Status: Acute Current Medications Current Medications Current Medications Fentanyl Citrate (Fentanyl 2ml Vial) 25 mcg PRN Q15MIN PRN IV PAIN GREATER THAN 3/10 Last administered on 05/01/17 22:08; Start 05/01/17 at 19:00; Stop at 18:59 Fentanyl Citrate (Fentanyl 2ml Vial) 100 mcg STK-MED ONCE .ROUTE ; Start at 19:12; Stop 05/01/17 at 19:13; Status DC Fentanyl Citrate (Fentanyl 2ml Vial) 25 mcg PRN Q15MIN PRN IV PAIN GREATER THAN 3/10; Start 05/01/17 at 21:15; Stop 05/02/17 at 21:14 Hydralazine HCl (Apresoline) 10 mg PRN Q4HRS PRN IVP 160/100; Start 05/01/17 at 22:00 Ondansetron HCl (Zofran) 4 mg PRN Q6HRS PRN IV NAUSEA/VOMITING Last administered on 05/02/17 06:18; Start 05/01/17 at 22:00 Prochlorperazine Edisylate (Compazine) 10 mg PRN Q6HRS PRN IV NAUSEA/VOMITING; Start 05/01/17 at 22:00 Prochlorperazine (Compazine) 25 mg PRN Q12HR PRN [place] NAUSEA/VOMITING; Start at 22:00 Al Hydroxide/Mg Hydroxide (Mylanta Plus Xs) 30 ml PRN Q3HRS PRN PO HEARTBURN / GAS; Start 05/01/17 at 22:00 Calcium Carbonate/ Glycine (Tums) 500 mg PRN Q3HRS PRN PO UPSET STOMACH; Start 05/01/17 at 22:00 Oxycodone HCl (Roxicodone) 5 mg PRN Q3HRS PRN PO BREAKTHROUGH PAIN Last administered on 05/02/17 12:34; Start 05/01/17 at 22:00 Morphine Sulfate 2 mg PRN Q2HR PRN IV PAIN; Start 05/01/17 at 22:00; Stop 05/01 at 22:01; Status DC Oxycodone/ Acetaminophen (Percocet 5/325) 1 tab PRN Q4HRS PRN PO MILD PAIN, 1ST CHOICE Last administered on 05/02/17 00:00; Start 05/01/17 at 22:00 Acetaminophen (Tylenol) 650 mg PRN Q6HRS PRN PO Headaches, Temp > 101.5F; Start 05/01/17 at 22:00 Ibuprofen (Motrin) 400 mg PRN Q6HRS PRN PO MILD PAIN; Start 05/01/17 at 22:00; Stop 05/01/17 at 22:01; Status DC Magnesium Hydroxide (Milk Of Magnesia) 2,400 mg PRN Q12HR PRN PO CONSTIPATION; Start 05/01/17 at 22:00 Lactulose 20 gm PRN Q12HR PRN PO CONSTIPATION; Start 05/01/17 at 22:00 Bisacodyl (Dulcolax Supp) 10 mg PRN DAILY PRN [place] CONSTIPATION; Start 05/01/17 at 22:00 Enoxaparin Sodium (Lovenox 40mg Syringe) 40 mg QHS SQ ; Start 05/01/17 at 23:00 Fentanyl Citrate (Fentanyl 2ml Vial) 50 mcg PRN Q2HR PRN IV SEVERE PAIN Last administered on 05/02/17t 12:34; Start 05/01/17 at 22:00 Allergies Allergies: Coded Allergies: codeine (Verified Allergy, Intermediate, 05/01/17) ketorolac (Verified Allergy, Intermediate, 05/01/17) levofloxacin (Verified Allergy, Intermediate, 05/01/17) ROS General: No: Chills HEENT: No: Heacaches, Visual Changes Respiratory: No: Cough, Shortness of breath Cardiovascular: No Chest Pain Physical Exam General: Alert HEENT: Other (medium sized hematoma on the left forehead, but no evidence of intracranial injury. Otherwise atraumatic.) Lungs: Normal air movement Heart: Regular rate Abdomen: Soft Extremities: Other (tenderness over the right shoulder. No ecchymosis. The skin is intact over the fracture. The deltoid motor function is minimal due to the pain but does seem intact. Sensation in the axillary nerve distribution is normal. She demonstrated spontaneous motor function of the hand including radial ulnar and median nerves. Pulses intact. Sensation normal in the right upper extremity.) Skin: No breakdown, Other (skin intact over the fracture.) Neuro: Normal speech, Normal tone, Sensation intact Psych/Mental Status: Mental status NL, Mood NL MUSCULOSKELETAL: Abnormal exam of right (shoulder as above) Vitals VITALS Vital Signs Date Time Temp Pulse Resp B/P (MAP) Pulse Ox O2 Delivery O2 Flow Rate FiO2 05/02/17 12:34 18 96 Room Air 05/02/17 11:00 97.5 59 133/65 (87) 97.5 Labs Labs Laboratory Tests Test 05/01/17 21:50 White Blood Count 10.1 x10^3/uL (4.0-11.0) Red Blood Count 4.25 x10^6/uL (3.50-5.40) Hemoglobin 12.0 g/dL (12.0-15.5) Hematocrit 36.3 % (36.0-47.0) Mean Corpuscular Volume 86 fL (79-100) Mean Corpuscular Hemoglobin 28 pg (25-35) Mean Corpuscular Hemoglobin Concent 33 g/dL (31-37) Red Cell Distribution Width 15.6 % (11.5-14.5) Platelet Count 204 x10^3/uL (140-400) Neutrophils (%) (Auto) 87 % (31-73) Lymphocytes (%) (Auto) 8 % (24-48) Monocytes (%) (Auto) 4 % (0-9) Eosinophils (%) (Auto) 0 % (0-3) Basophils (%) (Auto) 1 % (0-3) Neutrophils # (Auto) 8.7 x10^3uL (1.8-7.7) Lymphocytes # (Auto) 0.8 x10^3/uL (1.0-4.8) Monocytes # (Auto) 0.4 x10^3/uL (0.0-1.1) Eosinophils # (Auto) 0.0 x10^3/uL (0.0-0.7) Basophils # (Auto) 0.1 x10^3/uL (0.0-0.2) Segmented Neutrophils % 86 % (35-66) Band Neutrophils % 1 % (0-9) Lymphocytes % 8 % (24-48) Monocytes % 5 % (0-10) Platelet Estimate Adequate (ADEQUATE) Prothrombin Time 13.2 SEC (11.7-14.0) Prothromb Time International Ratio 1.1 (0.8-1.1) Activated Partial Thromboplast Time 21 SEC (24-38) Sodium Level 135 mmol/L (136-145) Potassium Level 3.7 mmol/L (3.5-5.1) Chloride Level 99 mmol/L (98-107) Carbon Dioxide Level 27 mmol/L (21-32) Anion Gap 9 (6-14) Blood Urea Nitrogen 19 mg/dL (7-20) Creatinine 1.1 mg/dL (0.6-1.0) Estimated GFR (Cockcroft-Gault) 47.1 BUN/Creatinine Ratio 17 (6-20) Glucose Level 173 mg/dL (70-99) Calcium Level 9.8 mg/dL (8.5-10.1) Total Bilirubin 0.7 mg/dL (0.2-1.0) Aspartate Amino Transf (AST/SGOT) 16 U/L (15-37) Alanine Aminotransferase (ALT/SGPT) 14 U/L (14-59) Alkaline Phosphatase 81 U/L (46-116) Total Protein 7.6 g/dL (6.4-8.2) Albumin 3.6 g/dL (3.4-5.0) Albumin/Globulin Ratio 0.9 (1.0-1.7) Laboratory Tests Test 05/01/17 21:50 White Blood Count 10.1 x10^3/uL (4.0-11.0) Red Blood Count 4.25 x10^6/uL (3.50-5.40) Hemoglobin 12.0 g/dL (12.0-15.5) Hematocrit 36.3 % (36.0-47.0) Mean Corpuscular Volume 86 fL (79-100) Mean Corpuscular Hemoglobin 28 pg (25-35) Mean Corpuscular Hemoglobin Concent 33 g/dL (31-37) Red Cell Distribution Width 15.6 % (11.5-14.5) Platelet Count 204 x10^3/uL (140-400) Neutrophils (%) (Auto) 87 % (31-73) Lymphocytes (%) (Auto) 8 % (24-48) Monocytes (%) (Auto) 4 % (0-9) Eosinophils (%) (Auto) 0 % (0-3) Basophils (%) (Auto) 1 % (0-3) Neutrophils # (Auto) 8.7 x10^3uL (1.8-7.7) Lymphocytes # (Auto) 0.8 x10^3/uL (1.0-4.8) Monocytes # (Auto) 0.4 x10^3/uL (0.0-1.1) Eosinophils # (Auto) 0.0 x10^3/uL (0.0-0.7) Basophils # (Auto) 0.1 x10^3/uL (0.0-0.2) Segmented Neutrophils % 86 % (35-66) Band Neutrophils % 1 % (0-9) Lymphocytes % 8 % (24-48) Monocytes % 5 % (0-10) Platelet Estimate Adequate (ADEQUATE) Prothrombin Time 13.2 SEC (11.7-14.0) Prothromb Time International Ratio 1.1 (0.8-1.1) Activated Partial Thromboplast Time 21 SEC (24-38) Sodium Level 135 mmol/L (136-145) Potassium Level 3.7 mmol/L (3.5-5.1) Chloride Level 99 mmol/L (98-107) Carbon Dioxide Level 27 mmol/L (21-32) Anion Gap 9 (6-14) Blood Urea Nitrogen 19 mg/dL (7-20) Creatinine 1.1 mg/dL (0.6-1.0) Estimated GFR (Cockcroft-Gault) 47.1 BUN/Creatinine Ratio 17 (6-20) Glucose Level 173 mg/dL (70-99) Calcium Level 9.8 mg/dL (8.5-10.1) Total Bilirubin 0.7 mg/dL (0.2-1.0) Aspartate Amino Transf (AST/SGOT) 16 U/L (15-37) Alanine Aminotransferase (ALT/SGPT) 14 U/L (14-59) Alkaline Phosphatase 81 U/L (46-116) Total Protein 7.6 g/dL (6.4-8.2) Albumin 3.6 g/dL (3.4-5.0) Albumin/Globulin Ratio 0.9 (1.0-1.7) Images Images I personally reviewed the images, and reviewed the reports of the right shoulder. She has a displaced three-part or possibly four-part proximal humerus fracture. There is a bone island, enchondroma or less likely a bony metastases in the proximal humerus. Significant displacement of the fracture fragments with a greater tuberosity well displaced. Mild radiographic osteopenia. I reviewed the x-rays of the elbow, proximal humerus, and the wrist. On a couple of views of the wrist it appears there could be a bone island there but it does not show up on the lateral view and may be artifact. Assessment/Plan Assessment/Plan Displaced right proximal humerus fracture, three-part or 4 part. 87-year-old right-handed healthy woman. She has a prior left shoulder reverse arthroplasty. I think reverse arthroplasty would be the best option here, but other options could be entertained such as plate and screw fixation, although that is less likely to provide rapid healing etc. I will speak to my partner Dr. Alyssa Verdugo and see if she is willing to treat this patient, as Dr. Verdugo is a fellowship training shoulder specialist. If Dr. Verdugo is unable to care for the patient I would recommend transfer to , for subspecialty treatment such as Dr. Barron, and consideration of right shoulder reverse arthroplasty. There is a open-heart surgery in the operating room today which may go until midnight, so no surgery is planned today. The patient may eat or drink today, and I will tentatively make her nothing by mouth after midnight for possible surgery by Dr. Verdugo tomorrow. MELANY MODI MD May 02, 2017 13:07
--- NOTE | 2017-05-02 14:54 | RAD ---
SHOULDER 2+V LEFT Clinical Indication: left shoulder arthoplasty evaluation Comparison: None. Findings: There is left shoulder arthroplasty. Alignment is anatomic. No acute fracture or dislocation. Soft tissues of the shoulder unremarkable. Atherosclerotic aortic arch. IMPRESSION: Left shoulder arthroplasty. No acute abnormality.
[2017-05-02 15:00] VITALS: BP 135/69
[2017-05-02] MEDS ORDERED: PANT40TA5 PO (16:28)
[2017-05-02] MEDS ORDERED: LOSA1TAB16 PO (16:28)
[2017-05-02] MEDS ORDERED: CITA40TA12 PO (16:28)
[2017-05-02] MEDS ORDERED: LEVO100T5 PO (16:28)
[2017-05-02 19:00] VITALS: BP 125/65
--- NOTE | 2017-05-02 19:31 | PDOC ---
PROGRESS NOTES Subjective Subjective Problems overnight: No acute issues. Objective Vital Signs Vital Signs Date Time Temp Pulse Resp B/P (MAP) Pulse Ox O2 Delivery O2 Flow Rate FiO2 05/02/17 18:39 16 Nasal Cannula 2.0 05/02/17 18:09 91 05/02/17 15:00 97.7 63 135/69 (91) 97.7 Labs Laboratory Tests Test 05/01/17 21:50 White Blood Count 10.1 x10^3/uL (4.0-11.0) Red Blood Count 4.25 x10^6/uL (3.50-5.40) Hemoglobin 12.0 g/dL (12.0-15.5) Hematocrit 36.3 % (36.0-47.0) Mean Corpuscular Volume 86 fL (79-100) Mean Corpuscular Hemoglobin 28 pg (25-35) Mean Corpuscular Hemoglobin Concent 33 g/dL (31-37) Red Cell Distribution Width 15.6 % (11.5-14.5) Platelet Count 204 x10^3/uL (140-400) Neutrophils (%) (Auto) 87 % (31-73) Lymphocytes (%) (Auto) 8 % (24-48) Monocytes (%) (Auto) 4 % (0-9) Eosinophils (%) (Auto) 0 % (0-3) Basophils (%) (Auto) 1 % (0-3) Neutrophils # (Auto) 8.7 x10^3uL (1.8-7.7) Lymphocytes # (Auto) 0.8 x10^3/uL (1.0-4.8) Monocytes # (Auto) 0.4 x10^3/uL (0.0-1.1) Eosinophils # (Auto) 0.0 x10^3/uL (0.0-0.7) Basophils # (Auto) 0.1 x10^3/uL (0.0-0.2) Segmented Neutrophils % 86 % (35-66) Band Neutrophils % 1 % (0-9) Lymphocytes % 8 % (24-48) Monocytes % 5 % (0-10) Platelet Estimate Adequate (ADEQUATE) Prothrombin Time 13.2 SEC (11.7-14.0) Prothromb Time International Ratio 1.1 (0.8-1.1) Activated Partial Thromboplast Time 21 SEC (24-38) Sodium Level 135 mmol/L (136-145) Potassium Level 3.7 mmol/L (3.5-5.1) Chloride Level 99 mmol/L (98-107) Carbon Dioxide Level 27 mmol/L (21-32) Anion Gap 9 (6-14) Blood Urea Nitrogen 19 mg/dL (7-20) Creatinine 1.1 mg/dL (0.6-1.0) Estimated GFR (Cockcroft-Gault) 47.1 BUN/Creatinine Ratio 17 (6-20) Glucose Level 173 mg/dL (70-99) Calcium Level 9.8 mg/dL (8.5-10.1) Total Bilirubin 0.7 mg/dL (0.2-1.0) Aspartate Amino Transf (AST/SGOT) 16 U/L (15-37) Alanine Aminotransferase (ALT/SGPT) 14 U/L (14-59) Alkaline Phosphatase 81 U/L (46-116) Total Protein 7.6 g/dL (6.4-8.2) Albumin 3.6 g/dL (3.4-5.0) Albumin/Globulin Ratio 0.9 (1.0-1.7) Laboratory Tests Test 05/01/17 21:50 White Blood Count 10.1 x10^3/uL (4.0-11.0) Red Blood Count 4.25 x10^6/uL (3.50-5.40) Hemoglobin 12.0 g/dL (12.0-15.5) Hematocrit 36.3 % (36.0-47.0) Mean Corpuscular Volume 86 fL (79-100) Mean Corpuscular Hemoglobin 28 pg (25-35) Mean Corpuscular Hemoglobin Concent 33 g/dL (31-37) Red Cell Distribution Width 15.6 % (11.5-14.5) Platelet Count 204 x10^3/uL (140-400) Neutrophils (%) (Auto) 87 % (31-73) Lymphocytes (%) (Auto) 8 % (24-48) Monocytes (%) (Auto) 4 % (0-9) Eosinophils (%) (Auto) 0 % (0-3) Basophils (%) (Auto) 1 % (0-3) Neutrophils # (Auto) 8.7 x10^3uL (1.8-7.7) Lymphocytes # (Auto) 0.8 x10^3/uL (1.0-4.8) Monocytes # (Auto) 0.4 x10^3/uL (0.0-1.1) Eosinophils # (Auto) 0.0 x10^3/uL (0.0-0.7) Basophils # (Auto) 0.1 x10^3/uL (0.0-0.2) Segmented Neutrophils % 86 % (35-66) Band Neutrophils % 1 % (0-9) Lymphocytes % 8 % (24-48) Monocytes % 5 % (0-10) Platelet Estimate Adequate (ADEQUATE) Prothrombin Time 13.2 SEC (11.7-14.0) Prothromb Time International Ratio 1.1 (0.8-1.1) Activated Partial Thromboplast Time 21 SEC (24-38) Sodium Level 135 mmol/L (136-145) Potassium Level 3.7 mmol/L (3.5-5.1) Chloride Level 99 mmol/L (98-107) Carbon Dioxide Level 27 mmol/L (21-32) Anion Gap 9 (6-14) Blood Urea Nitrogen 19 mg/dL (7-20) Creatinine 1.1 mg/dL (0.6-1.0) Estimated GFR (Cockcroft-Gault) 47.1 BUN/Creatinine Ratio 17 (6-20) Glucose Level 173 mg/dL (70-99) Calcium Level 9.8 mg/dL (8.5-10.1) Total Bilirubin 0.7 mg/dL (0.2-1.0) Aspartate Amino Transf (AST/SGOT) 16 U/L (15-37) Alanine Aminotransferase (ALT/SGPT) 14 U/L (14-59) Alkaline Phosphatase 81 U/L (46-116) Total Protein 7.6 g/dL (6.4-8.2) Albumin 3.6 g/dL (3.4-5.0) Albumin/Globulin Ratio 0.9 (1.0-1.7) Imaging Xrays of the right shoulder, forearm, and wrist reveal a displaced 3-4 part proximal humerus fracture with a possible enchondroma. Assessment Assessment right proximal humerus fracture Problems: Plan Plan of Care The patient is an 87 year old right hand dominant female with a displaced 3-4 part proximal humerus fracture. She has a left rtsa placed a year ago by Dr. Barron at . She would like to proceed with a right rtsa for her fracture. After a discussion of the risks and benefits of surgery with her, she has elected to proceed with a right rtsa for her fracture. We will plan for tomorrow afternoon. The patient will be wbat after surgery, with an anticipated hospital stay of 2- 3 days, possibly will need placement depending on her social situation. 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 ЮЛИЯ BUENO MD May 02, 2017 19:31
[2017-05-02] MEDS: oxyCODONE/APAP 5/325 1 TAB TABLET PO PRN ×2 (19:51)
[2017-05-02] MEDS: ENOXAPARIN 40 MG/0.4 ML SYRINGE. SQ SCH (21:16)
[2017-05-02 22:41] VITALS: BP 137/71
[2017-05-03] VITALS (8 sets, daily range): BP systolic 117–135; BP diastolic 51–60
[2017-05-03] MEDS: fentaNYL PF VIAL 100 MCG/2 ML VIAL IV PRN ×4 (03:37→23:17)
[2017-05-03] MEDS ORDERED: ROPIVacaine 0.75% PF 53.3 ML, EPINEPHrine 0.6 MG, MORPHINE PF 5 MG in IV NORMAL SALINE ... INT ART SCH (06:00)
[2017-05-03] MEDS ORDERED: IV RINGERS,LACTATED 1000ML 1,000 ML IV SCH (09:29)
[2017-05-03] MEDS ORDERED: fentaNYL PF VIAL 100 MCG/2 ML VIAL IV PRN ×2 (09:30)
[2017-05-03] MEDS ORDERED: MORPHINE SULFATE 2 MG/ML DISP.SYRIN. IV PRN (09:30)
[2017-05-03] MEDS ORDERED: HYDROmorphone 2 MG/ML VIAL IV PRN ×2 (09:30→21:45)
[2017-05-03] MEDS ORDERED: PROCHLORPERAZINE 10 MG/2 ML VIAL. IV PRN (09:30)
[2017-05-03] MEDS ORDERED: ONDANSETRON PF 4 MG/2 ML VIAL. IV PRN (09:30)
[2017-05-03] MEDS ORDERED: LIDOCAINE 1% 1 ML SYRINGE. ID PRN (09:30)
--- NOTE | 2017-05-03 09:50 | PDOC ---
PROGRESS NOTES Chief Complaint Chief Complaint 1. Rt humeral fx, closed, from mechanical fall 2. hypothyroidism, chronic stable 3. Obesity BMI 31.6 4 HTn, uncontrolled - could be from pain too 5. Left high frontal scalp hematoma - cold then warm compress History of Present Illness History of Present Illness LEft frontal hematoma is gone PLanned for RT humerus sx later 2 PMHAs been NPO PLAn: Sx later 2 PM POst op labs for tomorrow ordered Awaiting still home meds (HTN and synthroid dose) Dw family, RN and pt Vitals Vitals Vital Signs Date Time Temp Pulse Resp B/P (MAP) Pulse Ox O2 Delivery O2 Flow Rate FiO2 05/03/17 08:00 16 95 Room Air 2.0 05/03/17 07:00 97.7 67 135/58 (83) 97.7 Physical Exam General: Alert Heart: Regular rate Lungs: Clear Abdomen: Soft Extremities: Other (tenderness over the right shoulder. No ecchymosis. The skin is intact over the fracture. The deltoid motor function is minimal due to the pain but does seem intact. Sensation in the axillary nerve distribution is normal. She demonstrated spontaneous motor function of the hand including radial ulnar and median nerves. Pulses intact. Sensation normal in the right upper extremity.) Skin: No breakdown, Other (skin intact over the fracture.) Review of Systems Review of Systems R arm pain, all else is neg Assessment and Plan Assessmemt and Plan Problems Medical Problems: (1) Proximal humerus fracture Status: Acute Problems: Comment Review of Relevant I have reviewed the following items luis (where applicable) has been applied. Labs Laboratory Tests Test 05/01/17 21:50 White Blood Count 10.1 x10^3/uL (4.0-11.0) Red Blood Count 4.25 x10^6/uL (3.50-5.40) Hemoglobin 12.0 g/dL (12.0-15.5) Hematocrit 36.3 % (36.0-47.0) Mean Corpuscular Volume 86 fL (79-100) Mean Corpuscular Hemoglobin 28 pg (25-35) Mean Corpuscular Hemoglobin Concent 33 g/dL (31-37) Red Cell Distribution Width 15.6 % (11.5-14.5) Platelet Count 204 x10^3/uL (140-400) Neutrophils (%) (Auto) 87 % (31-73) Lymphocytes (%) (Auto) 8 % (24-48) Monocytes (%) (Auto) 4 % (0-9) Eosinophils (%) (Auto) 0 % (0-3) Basophils (%) (Auto) 1 % (0-3) Neutrophils # (Auto) 8.7 x10^3uL (1.8-7.7) Lymphocytes # (Auto) 0.8 x10^3/uL (1.0-4.8) Monocytes # (Auto) 0.4 x10^3/uL (0.0-1.1) Eosinophils # (Auto) 0.0 x10^3/uL (0.0-0.7) Basophils # (Auto) 0.1 x10^3/uL (0.0-0.2) Segmented Neutrophils % 86 % (35-66) Band Neutrophils % 1 % (0-9) Lymphocytes % 8 % (24-48) Monocytes % 5 % (0-10) Platelet Estimate Adequate (ADEQUATE) Prothrombin Time 13.2 SEC (11.7-14.0) Prothromb Time International Ratio 1.1 (0.8-1.1) Activated Partial Thromboplast Time 21 SEC (24-38) Sodium Level 135 mmol/L (136-145) Potassium Level 3.7 mmol/L (3.5-5.1) Chloride Level 99 mmol/L (98-107) Carbon Dioxide Level 27 mmol/L (21-32) Anion Gap 9 (6-14) Blood Urea Nitrogen 19 mg/dL (7-20) Creatinine 1.1 mg/dL (0.6-1.0) Estimated GFR (Cockcroft-Gault) 47.1 BUN/Creatinine Ratio 17 (6-20) Glucose Level 173 mg/dL (70-99) Calcium Level 9.8 mg/dL (8.5-10.1) Total Bilirubin 0.7 mg/dL (0.2-1.0) Aspartate Amino Transf (AST/SGOT) 16 U/L (15-37) Alanine Aminotransferase (ALT/SGPT) 14 U/L (14-59) Alkaline Phosphatase 81 U/L (46-116) Total Protein 7.6 g/dL (6.4-8.2) Albumin 3.6 g/dL (3.4-5.0) Albumin/Globulin Ratio 0.9 (1.0-1.7) Medications Current Medications Fentanyl Citrate (Fentanyl 2ml Vial) 25 mcg PRN Q15MIN PRN IV PAIN GREATER THAN 3/10 Last administered on 05/01/17 22:08; Start 05/01/17 at 19:00; Stop at 18:59; Status DC Fentanyl Citrate (Fentanyl 2ml Vial) 100 mcg STK-MED ONCE .ROUTE ; Start at 19:12; Stop 05/01/17 at 19:13; Status DC Fentanyl Citrate (Fentanyl 2ml Vial) 25 mcg PRN Q15MIN PRN IV PAIN GREATER THAN 3/10; Start 05/01/17 at 21:15; Stop 05/02/17 at 21:14; Status DC Hydralazine HCl (Apresoline) 10 mg PRN Q4HRS PRN IVP 160/100; Start 05/01/17 at 22:00 Ondansetron HCl (Zofran) 4 mg PRN Q6HRS PRN IV NAUSEA/VOMITING 1ST CHOICE Last administered on 05/02/17 18:08; Start 05/01/17 at 22:00 Prochlorperazine Edisylate (Compazine) 10 mg PRN Q6HRS PRN IV NAUSEA/VOMITING 2ND CHOICE; Start 05/01/17 at 22:00 Prochlorperazine (Compazine) 25 mg PRN Q12HR PRN [place] NAUSEA/VOMITING; Start at 22:00 Al Hydroxide/Mg Hydroxide (Mylanta Plus Xs) 30 ml PRN Q3HRS PRN PO HEARTBURN / GAS; Start 05/01/17 at 22:00 Calcium Carbonate/ Glycine (Tums) 500 mg PRN Q3HRS PRN PO UPSET STOMACH; Start 05/01/17 at 22:00 Oxycodone HCl (Roxicodone) 5 mg PRN Q3HRS PRN PO BREAKTHROUGH PAIN Last administered on 05/02/17 16:09; Start 05/01/17 at 22:00 Morphine Sulfate 2 mg PRN Q2HR PRN IV PAIN; Start 05/01/17 at 22:00; Stop 05/01 at 22:01; Status DC Oxycodone/ Acetaminophen (Percocet 5/325) 1 tab PRN Q4HRS PRN PO MILD PAIN, 1ST CHOICE Last administered on 05/02/17 19:51; Start 05/01/17 at 22:00 Acetaminophen (Tylenol) 650 mg PRN Q6HRS PRN PO Headaches, Temp > 101.5F; Start 05/01/17 at 22:00 Ibuprofen (Motrin) 400 mg PRN Q6HRS PRN PO MILD PAIN; Start 05/01/17 at 22:00; Stop 05/01/17 at 22:01; Status DC Magnesium Hydroxide (Milk Of Magnesia) 2,400 mg PRN Q12HR PRN PO CONSTIPATION; Start 05/01/17 at 22:00 Lactulose 20 gm PRN Q12HR PRN PO CONSTIPATION; Start 05/01/17 at 22:00 Bisacodyl (Dulcolax Supp) 10 mg PRN DAILY PRN [place] CONSTIPATION; Start 05/01/17 at 22:00 Enoxaparin Sodium (Lovenox 40mg Syringe) 40 mg QHS SQ Last administered on 05/02 21:16; Start 05/01/17 at 23:00 Fentanyl Citrate (Fentanyl 2ml Vial) 50 mcg PRN Q2HR PRN IV SEVERE PAIN Last administered on 05/03/17 08:00; Start 05/01/17 at 22:00 Cefazolin Sodium/ Dextrose 50 ml @ 100 mls/hr 1X PREOP PRN IV SEE COMMENTS; Start 05/03/17 at 06:00 Ropivacaine 53.3 ml/Epinephrine HCl 0.6 mg/ Morphine Sulfate 5 mg/Sodium Chloride 100 ml @ 100 mls/hr 1X PERIOP INT ART ; Start 05/03/17 at 06:00 Morphine Sulfate 5 mg/Ketorolac Tromethamine 30 mg/Ropivacaine 60 ml/ Epinephrine HCl 0.5 mg/Sodium Chloride 100 ml @ 100 mls/hr 1X PERIOP ONCE INT ART ; Start 05/03/17 at 12:00; Stop 05/03/17 at 12:59 Bacitracin 29711 unit/Sodium Chloride 1,000 ml @ 1,000 mls/hr 1X PERIOP ONCE IRR ; Start 05/03/17 at 12:00; Stop 05/03/17 at 12:59 Ondansetron HCl (Zofran) 4 mg PRN Q6HRS PRN IV NAUSEA/VOMITING; Start 05/03/17 at 09:30; Stop 05/03/17 at 18:00 Fentanyl Citrate (Fentanyl 2ml Vial) 25 mcg PRN Q5MIN PRN IV MILD PAIN; Start 05/03/17 at 09:30; Stop 05/03/17 at 18:00 Fentanyl Citrate (Fentanyl 2ml Vial) 50 mcg PRN Q5MIN PRN IV MODERATE PAIN; Start 05/03/17 at 09:30; Stop 05/03/17 at 18:00 Morphine Sulfate 1 mg PRN Q10MIN PRN IV SEVERE PAIN; Start 05/03/17 at 09:30; Stop 05/04/17 at 09:29; Status UNV Ringer's Solution 1,000 ml @ 30 mls/hr Q24H IV ; Start 05/03/17 at 09:29; Stop 05/03/17 at 21:28 Lidocaine HCl 2 ml PRN 1X PRN ID PRIOR TO IV START; Start 05/03/17 at 09:30; Stop 05/03/17 at 18:00 Hydromorphone HCl (Dilaudid) 0.5 mg PRN Q10MIN PRN IV SEV PAIN, Second choice; Start 05/03/17 at 09:30; Stop 05/04/17 at 09:29; Status UNV Prochlorperazine Edisylate (Compazine) 5 mg PACU PRN PRN IV NAUSEA, MRX1; Start 05/03/17 at 09:30; Stop 05/03/17 at 18:00 Active Scripts Active Reported Pantoprazole Sodium 40 Mg Tablet.dr 1 Tab PO DAILY Losartan-Hctz 50-12.5 Mg Tab (Losartan/Hydrochlorothiazide) 1 Each Tablet 1 Tab PO DAILY Levothyroxine Sodium 100 Mcg Tablet 1 Tab PO DAILY Celexa (Citalopram Hydrobromide) 40 Mg Tablet 100 Mg PO DAILY Vitals/I & O Vital Sign - Last 24 Hours 05/02/17 05/02/17 05/02/17 05/02/17 10:17 11:00 12:34 12:34 Temp 97.5 97.5 Pulse 59 Resp 16 20 18 18 B/P (MAP) 133/65 (87) Pulse Ox 94 96 96 96 O2 Delivery Room Air Room Air Room Air Room Air 05/02/17 05/02/17 05/02/17 05/02/17 13:33 15:00 16:09 16:10 Temp 97.7 97.7 Pulse 63 Resp 16 20 18 18 B/P (MAP) 135/69 (91) Pulse Ox 91 91 91 O2 Delivery Room Air Room Air Room Air 05/02/17 05/02/17 05/02/17 05/02/17 17:09 18:09 19:00 19:51 Temp 97.9 97.9 Pulse 71 Resp 18 16 20 B/P (MAP) 125/65 (85) Pulse Ox 91 91 96 96 O2 Delivery Nasal Cannula Nasal Cannula Nasal Cannula Room Air O2 Flow Rate 2.0 2.0 2.0 2.0 05/02/17 05/02/17 05/02/17 05/02/17 20:00 20:51 22:41 23:10 Temp 97.7 97.7 Pulse 66 Resp 20 16 20 B/P (MAP) 137/71 (93) Pulse Ox 98 98 98 O2 Delivery Room Air Room Air Nasal Cannula Room Air O2 Flow Rate 2.0 2.0 2.0 05/03/17 05/03/17 05/03/17 05/03/17 03:00 03:37 04:07 07:00 Temp 97.9 97.7 97.9 97.7 Pulse 66 67 Resp 18 20 18 16 B/P (MAP) 135/60 (85) 135/58 (83) Pulse Ox 95 95 95 O2 Delivery Nasal Cannula Room Air Room Air Room Air O2 Flow Rate 2.0 2.0 2.0 95.0 05/03/17 08:00 Resp 16 Pulse Ox 95 O2 Delivery Room Air O2 Flow Rate 2.0 Intake and Output 05/02/17 05/02/17 05/03/17 15:00 23:00 07:00 Intake Total 400 ml 200 ml Output Total 300 ml 125 ml Balance 100 ml 75 ml ALEXANDRA ULRICH MD May 03, 2017 09:50
[2017-05-03] MEDS ORDERED: BACITRACIN 50,000 UNIT in IV NORMAL SALINE 1000ML BAG 1,000 ML IRR ONE (12:00)
[2017-05-03] MEDS ORDERED: MORPHINE SULFATE 5 MG, KETOROLAC TROMETHAMINE 30 MG, ROPIVacaine 0.5% PF 60 ML, EPINEPH... INT ART ONE ×5 (12:00)
[2017-05-03] MEDS ORDERED: fentaNYL PF VIAL 250 MCG/5 ML VIAL ONE (15:47)
[2017-05-03] MEDS ORDERED: ROCURONIUM 50 MG/5 ML VIAL. ONE ×2 (15:47→18:59)
[2017-05-03] MEDS ORDERED: MIDAZOLAM HCL/PF 2 MG/2 ML VIAL. ONE (15:47)
[2017-05-03] MEDS ORDERED: ONDANSETRON PF 4 MG/2 ML VIAL. ONE (15:49)
[2017-05-03] MEDS ORDERED: LIDOCAINE 2% PF Vial for OR 5 ML VIAL. ONE (15:49)
[2017-05-03] MEDS ORDERED: PROPOFOL 20 ML IV ONE (15:49)
[2017-05-03] MEDS ORDERED: DEXAMETHASONE SOD PHOS 20 MG/5 ML VIAL. ONE (15:49)
[2017-05-03] MEDS ORDERED: SEVOFLURANE > 120 MINUTES. IH ONE (15:49)
[2017-05-03] MEDS ORDERED: TRANEXAMIC ACID 1,000 MG in IV NORMAL SALINE 50ML 50 ML INJ ONE ×4 (19:00)
[2017-05-03] MEDS ORDERED: ePHEDrine PF IN SALINE 50 MG/5 ML DISP.SYRIN IV ONE (19:11)
[2017-05-03] MEDS ORDERED: 0.9 % SODIUM CHLORIDE 50 ML VIAL. IJ ONE (20:03)
[2017-05-03] MEDS ORDERED: PHENYLEPHRINE 10 MG/ML VIAL. ONE (20:03)
[2017-05-03] MEDS: ENOXAPARIN 40 MG/0.4 ML SYRINGE. SQ SCH (21:00)
[2017-05-03] MEDS ORDERED: NEOSTIGMINE METHYLSULFATE 5 MG/5 ML SYRINGE. ONE (21:23)
[2017-05-03] MEDS ORDERED: GLYCOPYRROLATE 1 MG/5 ML VIAL. ONE (21:23)
[2017-05-03] MEDS ORDERED: oxyCODONE IR 5 MG TABLET PO PRN ×2 (21:45)
--- NOTE | 2017-05-03 21:51 | PDOC ---
BRIEF OPERATIVE NOTE Date: May 03, 2017 Pre-Op Diagnosis Right proximal humerus fracture Post-Op Diagnosis Same Procedure Performed Right reverse total shoulder arthroplasty Surgeon Alyssa Verdugo MD [employer] Bailey Ortega PA-C Anesthesia Type: General, MAC Blood Loss 250 Specimens Obtained None Findings None Complications None BAILEY ORTEGA [facility] May 03, 2017 21:51
[2017-05-03 22:24] LABS: HEMATOCRIT 23.7 % (36.0-47.0); HEMOGLOBIN 7.4 g/dL (12.0-15.5); RED BLOOD COUNT 2.68 x10^6/uL (3.50-5.40); RED CELL DISTRIBUTION WIDTH 15.3 % (11.5-14.5); WHITE BLOOD COUNT 6.9 x10^3/uL (4.0-11.0)
[2017-05-03] MEDS: ONDANSETRON PF 4 MG/2 ML VIAL. IV PRN (23:16)
[2017-05-04] VITALS (13 sets, daily range): BP systolic 126–151; BP diastolic 52–71
[2017-05-04] MEDS: fentaNYL PF VIAL 100 MCG/2 ML VIAL IV PRN ×3 (01:55→09:58)
[2017-05-04 03:12] LABS: CALCIUM 7.1 mg/dL (8.5-10.1); CREATININE 0.5 mg/dL (0.6-1.0); POTASSIUM 3.9 mmol/L (3.5-5.1)
[2017-05-04] MEDS: oxyCODONE/APAP 5/325 1 TAB TABLET PO PRN ×3 (07:23→20:45)
--- NOTE | 2017-05-04 07:34 | RAD ---
Indication: Postop right shoulder. Time of exam 2205 hours. 2 views right shoulder demonstrate postop changes of reverse shoulder arthroplasty. The prosthetic elements appear to be in good position. No fracture or loosening is seen. There are overlying skin maegan noted. Impression: Satisfactory postop appearance to the right shoulder.
[2017-05-04 07:41] LABS: BASO % 0 % (0-3); EOS % 0 % (0-3); HEMATOCRIT 34.7 % (36.0-47.0); HEMOGLOBIN 11.2 g/dL (12.0-15.5); LYMPH # 0.6 x10^3/uL (1.0-4.8); LYMPH % 6 % (24-48); MEAN CORPUSCULAR HEMOGLOBIN 28 pg (25-35); MEAN CORPUSCULAR HGB CONC 32 g/dL (31-37); MEAN CORPUSCULAR VOLUME 86 fL (79-100); MONO % 6 % (0-9); NEUT % 88 % (31-73); PLATELET COUNT 157 x10^3/uL (140-400); RED BLOOD COUNT 4.05 x10^6/uL (3.50-5.40); RED CELL DISTRIBUTION WIDTH 14.9 % (11.5-14.5); WHITE BLOOD COUNT 9.6 x10^3/uL (4.0-11.0)
[2017-05-04] MEDS: ENOXAPARIN 40 MG/0.4 ML SYRINGE. SQ SCH (09:22)
--- NOTE | 2017-05-04 14:55 | PDOC ---
PROGRESS NOTES Chief Complaint Chief Complaint 1. Rt humeral fx, closed, from mechanical fall 2. hypothyroidism, chronic stable 3. Obesity BMI 31.6 4 HTn, uncontrolled - could be from pain too 5. Left high frontal scalp hematoma - cold then warm compress History of Present Illness History of Present Illness WOrked with PT Seen with PT and dtr NO issues except coughing productive sounding cough NO fevers. WBC normal. Now has wound vac on the R shoulder CLaims in oct 2016, when she had the left shoulder repair, ended up with PNA, treated with levaquin and got c diff (first episode)., ENded up staying 10 days in hospital and 3 days in rehab This admission, wants HH instead of SNU PLAN Check CXR today IS COugh med scheduled Need for antibiotics pending CXR If low sats, might need 6MW upon dc Dw Pt and dtr and physical therapy at bedside Vitals Vitals Vital Signs Date Time Temp Pulse Resp B/P (MAP) Pulse Ox O2 Delivery O2 Flow Rate FiO2 05/04/17 11:00 98.6 62 18 132/60 (84) 97 Nasal Cannula 2.0 98.6 Physical Exam General: Alert Heart: Regular rate Lungs: Clear Abdomen: Soft Extremities: Other (tenderness over the right shoulder. No ecchymosis. The skin is intact over the fracture. The deltoid motor function is minimal due to the pain but does seem intact. Sensation in the axillary nerve distribution is normal. She demonstrated spontaneous motor function of the hand including radial ulnar and median nerves. Pulses intact. Sensation normal in the right upper extremity.) Skin: No breakdown, Other (skin intact over the fracture.) Labs LABS Laboratory Tests Test 05/03/17 22:10 05/04/17 00:00 05/04/17 07:25 White Blood Count 6.9 x10^3/uL (4.0-11.0) 9.6 x10^3/uL (4.0-11.0) Red Blood Count 2.68 x10^6/uL (3.50-5.40) 4.05 x10^6/uL (3.50-5.40) Hemoglobin 7.4 g/dL (12.0-15.5) 11.2 g/dL (12.0-15.5) Hematocrit 23.7 % (36.0-47.0) 34.7 % (36.0-47.0) Mean Corpuscular Volume 88 fL (79-100) 86 fL (79-100) Mean Corpuscular Hemoglobin 28 pg (25-35) 28 pg (25-35) Mean Corpuscular Hemoglobin Concent 31 g/dL (31-37) 32 g/dL (31-37) Red Cell Distribution Width 15.3 % (11.5-14.5) 14.9 % (11.5-14.5) Platelet Count 119 x10^3/uL (140-400) 157 x10^3/uL (140-400) Sodium Level 136 mmol/L (136-145) Potassium Level 3.9 mmol/L (3.5-5.1) Chloride Level 103 mmol/L (98-107) Carbon Dioxide Level 19 mmol/L (21-32) Anion Gap 14 (6-14) Blood Urea Nitrogen 13 mg/dL (7-20) Creatinine 0.5 mg/dL (0.6-1.0) Estimated GFR (Cockcroft-Gault) 117.0 Glucose Level 106 mg/dL (70-99) Calcium Level 7.1 mg/dL (8.5-10.1) Neutrophils (%) (Auto) 88 % (31-73) Lymphocytes (%) (Auto) 6 % (24-48) Monocytes (%) (Auto) 6 % (0-9) Eosinophils (%) (Auto) 0 % (0-3) Basophils (%) (Auto) 0 % (0-3) Neutrophils # (Auto) 8.5 x10^3uL (1.8-7.7) Lymphocytes # (Auto) 0.6 x10^3/uL (1.0-4.8) Monocytes # (Auto) 0.6 x10^3/uL (0.0-1.1) Eosinophils # (Auto) 0.0 x10^3/uL (0.0-0.7) Basophils # (Auto) 0.0 x10^3/uL (0.0-0.2) Review of Systems Review of Systems cough, no inc in shoulder pain, no fevers, no abd pain Assessment and Plan Assessmemt and Plan Problems Medical Problems: (1) Proximal humerus fracture Status: Acute Problems: Comment Review of Relevant I have reviewed the following items luis (where applicable) has been applied. Labs Laboratory Tests Test 05/03/17 22:10 05/04/17 00:00 05/04/17 07:25 White Blood Count 6.9 x10^3/uL (4.0-11.0) 9.6 x10^3/uL (4.0-11.0) Red Blood Count 2.68 x10^6/uL (3.50-5.40) 4.05 x10^6/uL (3.50-5.40) Hemoglobin 7.4 g/dL (12.0-15.5) 11.2 g/dL (12.0-15.5) Hematocrit 23.7 % (36.0-47.0) 34.7 % (36.0-47.0) Mean Corpuscular Volume 88 fL (79-100) 86 fL (79-100) Mean Corpuscular Hemoglobin 28 pg (25-35) 28 pg (25-35) Mean Corpuscular Hemoglobin Concent 31 g/dL (31-37) 32 g/dL (31-37) Red Cell Distribution Width 15.3 % (11.5-14.5) 14.9 % (11.5-14.5) Platelet Count 119 x10^3/uL (140-400) 157 x10^3/uL (140-400) Sodium Level 136 mmol/L (136-145) Potassium Level 3.9 mmol/L (3.5-5.1) Chloride Level 103 mmol/L (98-107) Carbon Dioxide Level 19 mmol/L (21-32) Anion Gap 14 (6-14) Blood Urea Nitrogen 13 mg/dL (7-20) Creatinine 0.5 mg/dL (0.6-1.0) Estimated GFR (Cockcroft-Gault) 117.0 Glucose Level 106 mg/dL (70-99) Calcium Level 7.1 mg/dL (8.5-10.1) Neutrophils (%) (Auto) 88 % (31-73) Lymphocytes (%) (Auto) 6 % (24-48) Monocytes (%) (Auto) 6 % (0-9) Eosinophils (%) (Auto) 0 % (0-3) Basophils (%) (Auto) 0 % (0-3) Neutrophils # (Auto) 8.5 x10^3uL (1.8-7.7) Lymphocytes # (Auto) 0.6 x10^3/uL (1.0-4.8) Monocytes # (Auto) 0.6 x10^3/uL (0.0-1.1) Eosinophils # (Auto) 0.0 x10^3/uL (0.0-0.7) Basophils # (Auto) 0.0 x10^3/uL (0.0-0.2) Laboratory Tests Test 05/03/17 22:10 05/04/17 00:00 05/04/17 07:25 White Blood Count 6.9 x10^3/uL (4.0-11.0) 9.6 x10^3/uL (4.0-11.0) Red Blood Count 2.68 x10^6/uL (3.50-5.40) 4.05 x10^6/uL (3.50-5.40) Hemoglobin 7.4 g/dL (12.0-15.5) 11.2 g/dL (12.0-15.5) Hematocrit 23.7 % (36.0-47.0) 34.7 % (36.0-47.0) Mean Corpuscular Volume 88 fL (79-100) 86 fL (79-100) Mean Corpuscular Hemoglobin 28 pg (25-35) 28 pg (25-35) Mean Corpuscular Hemoglobin Concent 31 g/dL (31-37) 32 g/dL (31-37) Red Cell Distribution Width 15.3 % (11.5-14.5) 14.9 % (11.5-14.5) Platelet Count 119 x10^3/uL (140-400) 157 x10^3/uL (140-400) Sodium Level 136 mmol/L (136-145) Potassium Level 3.9 mmol/L (3.5-5.1) Chloride Level 103 mmol/L (98-107) Carbon Dioxide Level 19 mmol/L (21-32) Anion Gap 14 (6-14) Blood Urea Nitrogen 13 mg/dL (7-20) Creatinine 0.5 mg/dL (0.6-1.0) Estimated GFR (Cockcroft-Gault) 117.0 Glucose Level 106 mg/dL (70-99) Calcium Level 7.1 mg/dL (8.5-10.1) Neutrophils (%) (Auto) 88 % (31-73) Lymphocytes (%) (Auto) 6 % (24-48) Monocytes (%) (Auto) 6 % (0-9) Eosinophils (%) (Auto) 0 % (0-3) Basophils (%) (Auto) 0 % (0-3) Neutrophils # (Auto) 8.5 x10^3uL (1.8-7.7) Lymphocytes # (Auto) 0.6 x10^3/uL (1.0-4.8) Monocytes # (Auto) 0.6 x10^3/uL (0.0-1.1) Eosinophils # (Auto) 0.0 x10^3/uL (0.0-0.7) Basophils # (Auto) 0.0 x10^3/uL (0.0-0.2) Medications Current Medications Fentanyl Citrate (Fentanyl 2ml Vial) 25 mcg PRN Q15MIN PRN IV PAIN GREATER THAN 3/10 Last administered on 05/01/17 22:08; Start 05/01/17 at 19:00; Stop at 18:59; Status DC Fentanyl Citrate (Fentanyl 2ml Vial) 100 mcg STK-MED ONCE .ROUTE ; Start at 19:12; Stop 05/01/17 at 19:13; Status DC Fentanyl Citrate (Fentanyl 2ml Vial) 25 mcg PRN Q15MIN PRN IV PAIN GREATER THAN 3/10; Start 05/01/17 at 21:15; Stop 05/02/17 at 21:14; Status DC Hydralazine HCl (Apresoline) 10 mg PRN Q4HRS PRN IVP 160/100; Start 05/01/17 at 22:00 Ondansetron HCl (Zofran) 4 mg PRN Q6HRS PRN IV NAUSEA/VOMITING 1ST CHOICE Last administered on 05/03/17 23:16; Start 05/01/17 at 22:00 Prochlorperazine Edisylate (Compazine) 10 mg PRN Q6HRS PRN IV NAUSEA/VOMITING 2ND CHOICE; Start 05/01/17 at 22:00 Prochlorperazine (Compazine) 25 mg PRN Q12HR PRN IA NAUSEA/VOMITING; Start at 22:00 Al Hydroxide/Mg Hydroxide (Mylanta Plus Xs) 30 ml PRN Q3HRS PRN PO HEARTBURN / GAS; Start 05/01/17 at 22:00 Calcium Carbonate/ Glycine (Tums) 500 mg PRN Q3HRS PRN PO UPSET STOMACH; Start 05/01/17 at 22:00 Oxycodone HCl (Roxicodone) 5 mg PRN Q3HRS PRN PO BREAKTHROUGH PAIN Last administered on 05/02/17 16:09; Start 05/01/17 at 22:00; Stop 05/03/17 at 21:42 ; Status DC Morphine Sulfate 2 mg PRN Q2HR PRN IV PAIN; Start 05/01/17 at 22:00; Stop 05/01 at 22:01; Status DC Oxycodone/ Acetaminophen (Percocet 5/325) 1 tab PRN Q4HRS PRN PO MILD PAIN, 1ST CHOICE Last administered on 05/04/17 07:23; Start 05/01/17 at 22:00 Acetaminophen (Tylenol) 650 mg PRN Q6HRS PRN PO Headaches, Temp > 101.5F; Start 05/01/17 at 22:00 Ibuprofen (Motrin) 400 mg PRN Q6HRS PRN PO MILD PAIN; Start 05/01/17 at 22:00; Stop 05/01/17 at 22:01; Status DC Magnesium Hydroxide (Milk Of Magnesia) 2,400 mg PRN Q12HR PRN PO CONSTIPATION; Start 05/01/17 at 22:00 Lactulose 20 gm PRN Q12HR PRN PO CONSTIPATION; Start 05/01/17 at 22:00 Bisacodyl (Dulcolax Supp) 10 mg PRN DAILY PRN IA CONSTIPATION; Start 05/01/17 at 22:00 Enoxaparin Sodium (Lovenox 40mg Syringe) 40 mg QHS SQ Last administered on 05/04 09:22; Start 05/01/17 at 23:00 Fentanyl Citrate (Fentanyl 2ml Vial) 50 mcg PRN Q2HR PRN IV SEVERE PAIN Last administered on 05/04/17 09:58; Start 05/01/17 at 22:00 Cefazolin Sodium/ Dextrose 50 ml @ 100 mls/hr 1X PREOP PRN IV SEE COMMENTS Last administered on 05/03/17 18:03; Start 05/03/17 at 06:00 Ropivacaine 53.3 ml/Epinephrine HCl 0.6 mg/ Morphine Sulfate 5 mg/Sodium Chloride 100 ml @ 100 mls/hr 1X PERIOP INT ART ; Start 05/03/17 at 06:00 Morphine Sulfate 5 mg/Ketorolac Tromethamine 30 mg/Ropivacaine 60 ml/ Epinephrine HCl 0.5 mg/Sodium Chloride 100 ml @ 100 mls/hr 1X PERIOP ONCE INT ART Last administered on 05/03/17 18:26; Start 05/03/17 at 12:00; Stop at 12:59; Status DC Bacitracin 08844 unit/Sodium Chloride 1,000 ml @ 1,000 mls/hr 1X PERIOP ONCE IRR ; Start 05/03/17 at 12:00; Stop 05/03/17 at 12:59; Status DC Ondansetron HCl (Zofran) 4 mg PRN Q6HRS PRN IV NAUSEA/VOMITING; Start 05/03/17 at 09:30; Stop 05/03/17 at 18:00; Status DC Fentanyl Citrate (Fentanyl 2ml Vial) 25 mcg PRN Q5MIN PRN IV MILD PAIN; Start 05/03/17 at 09:30; Stop 05/03/17 at 18:00; Status DC Fentanyl Citrate (Fentanyl 2ml Vial) 50 mcg PRN Q5MIN PRN IV MODERATE PAIN; Start 05/03/17 at 09:30; Stop 05/03/17 at 18:00; Status DC Morphine Sulfate 1 mg PRN Q10MIN PRN IV SEVERE PAIN; Start 05/03/17 at 09:30; Stop 05/03/17 at 18:00; Status DC Ringer's Solution 1,000 ml @ 30 mls/hr Q24H IV Last administered on 05/03/17 16:00; Start 05/03/17 at 09:29; Stop 05/03/17 at 21:28; Status DC Lidocaine HCl 2 ml PRN 1X PRN ID PRIOR TO IV START; Start 05/03/17 at 09:30; Stop 05/03/17 at 18:00; Status DC Hydromorphone HCl (Dilaudid) 0.5 mg PRN Q10MIN PRN IV SEV PAIN, Second choice; Start 05/03/17 at 09:30; Stop 05/03/17 at 18:00; Status DC Prochlorperazine Edisylate (Compazine) 5 mg PACU PRN PRN IV NAUSEA, MRX1; Start 05/03/17 at 09:30; Stop 05/03/17 at 18:00; Status DC Midazolam HCl (Versed) 2 mg STK-MED ONCE .ROUTE ; Start 05/03/17 at 15:47; Stop 05/03/17 at 15:48; Status DC Fentanyl Citrate (Fentanyl 5ml Vial) 250 mcg STK-MED ONCE .ROUTE ; Start at 15:47; Stop 05/03/17 at 15:48; Status DC Rocuronium [place] (Zemuron) 50 mg STK-MED ONCE .ROUTE ; Start 05/03/17 at 15:47 ; Stop 05/03/17 at 15:48; Status DC Dexamethasone Sodium Phosphate (Decadron) 20 mg STK-MED ONCE .ROUTE ; Start at 15:49; Stop 05/03/17 at 15:50; Status DC Ondansetron HCl (Zofran) 4 mg STK-MED ONCE .ROUTE ; Start 05/03/17 at 15:49; Stop 05/03/17 at 15:50; Status DC Propofol 20 ml @ As Directed STK-MED ONCE IV ; Start 05/03/17 at 15:49; Stop at 15:50; Status DC Lidocaine HCl (Lidocaine Pf 2% Vial) 5 ml STK-MED ONCE .ROUTE ; Start 05/03/17 at 15:49; Stop 05/03/17 at 15:50; Status DC Sevoflurane (Ultane) 90 ml STK-MED ONCE IH ; Start 05/03/17 at 15:49; Stop 05/03 at 15:50; Status DC Rocuronium [place] (Zemuron) 50 mg STK-MED ONCE .ROUTE ; Start 05/03/17 at 18:59 ; Stop 05/03/17 at 19:00; Status DC Tranexamic Acid 1000 mg/Sodium Chloride 60 ml @ 60 mls/hr 1X PERIOP ONCE INJ Last administered on 05/03/17t 19:17; Start 05/03/17 at 19:00; Stop 05/03/17 at 19:59; Status DC Tranexamic Acid 1000 mg/Sodium Chloride 60 ml @ 60 mls/hr 1X PERIOP ONCE INJ Last administered on 05/03/17t 21:00; Start 05/03/17 at 19:00; Stop 05/03/17 at 19:59; Status DC Ephedrine Sulfate 50 mg STK-MED ONCE IV ; Start 05/03/17 at 19:11; Stop at 19:12; Status DC Sodium Chloride (Sodium Chloride) 50 ml STK-MED ONCE IJ ; Start 05/03/17 at 20: 03; Stop 05/03/17 at 20:04; Status DC Phenylephrine HCl (Allan-Synephrine Inj) 10 mg STK-MED ONCE .ROUTE ; Start at 20:03; Stop 05/03/17 at 20:04; Status DC Glycopyrrolate (Robinul) 1 mg STK-MED ONCE .ROUTE ; Start 05/03/17 at 21:23; Stop 05/03/17 at 21:24; Status DC Neostigmine Methylsulfate 5 mg STK-MED ONCE .ROUTE ; Start 05/03/17 at 21:23; Stop 05/03/17 at 21:24; Status DC Cefazolin Sodium/ Dextrose 50 ml @ 100 mls/hr Q8HRS IV ; Start 05/03/17 at 22: 00; Stop 05/04/17 at 06:29; Status Cancel Oxycodone HCl (Roxicodone) 5 mg PRN Q3HRS PRN PO moderate pain; Start 05/03/17 at 21:45 Oxycodone HCl (Roxicodone) 10 mg PRN Q3HRS PRN PO severe pain; Start 05/03/17 at 21:45 Hydromorphone HCl (Dilaudid) 0.5 mg PRN Q3HRS PRN IV breakthrough pain; Start 05/03/17 at 21:45 Cefazolin Sodium/ Dextrose 50 ml @ 100 mls/hr Q8H IV Last administered on 05/04t 09:21; Start 05/04/17 at 00:00; Stop 05/04/17 at 08:29; Status DC Active Scripts Active Reported Pantoprazole Sodium 40 Mg Tablet.dr 1 Tab PO DAILY Losartan-Hctz 50-12.5 Mg Tab (Losartan/Hydrochlorothiazide) 1 Each Tablet 1 Tab PO DAILY Levothyroxine Sodium 100 Mcg Tablet 1 Tab PO DAILY Celexa (Citalopram Hydrobromide) 40 Mg Tablet 100 Mg PO DAILY Vitals/I & O Vital Sign - Last 24 Hours 05/03/17 05/03/17 05/03/17 05/03/17 15:00 15:45 21:38 21:38 Temp 99.1 98.9 97.4 99.1 98.9 97.4 Pulse 59 59 74 Resp 16 20 16 B/P (MAP) 124/55 (78) 124/56 103/41 Pulse Ox 96 94 100 O2 Delivery Room Air Nasal Cannula Simple Mask Mask O2 Flow Rate 2 10 10 05/03/17 05/03/17 05/03/17 05/03/17 21:53 22:08 22:23 22:38 Temp 97.4 97.4 97 97.0 97.4 97.4 97.0 97.0 Pulse 73 71 70 70 Resp 16 18 19 18 B/P (MAP) 108/49 135/64 119/65 128/61 Pulse Ox 100 93 93 93 O2 Delivery Simple Mask Nasal Cannula Nasal Cannula Nasal Cannula O2 Flow Rate 10 2 2 2 05/03/17 05/03/17 05/03/17 05/03/17 22:50 23:00 23:00 23:15 Temp 97.7 96.6 97.7 96.6 Pulse 67 68 68 Resp 18 20 18 B/P (MAP) 128/56 (80) 132/59 (83) 130/52 (78) Pulse Ox 93 95 95 O2 Delivery Nasal Cannula Nasal Cannula Nasal Cannula Nasal Cannula O2 Flow Rate 3.0 3.0 3.0 3.0 05/03/17 05/03/17 05/03/17 05/03/17 23:17 23:30 23:45 23:45 Temp 97.7 97.7 97.7 97.7 Pulse 64 68 68 Resp 20 18 18 B/P (MAP) 132/58 (82) 127/51 127/51 (76) Pulse Ox 93 94 92 O2 Delivery Nasal Cannula Nasal Cannula Nasal Cannula O2 Flow Rate 2.0 3.0 3.0 05/04/17 05/04/17 05/04/17 05/04/17 00:00 00:00 00:30 01:00 Temp 97.7 97.7 96.4 97.7 97.7 96.4 Pulse 65 65 64 65 Resp 18 18 18 B/P (MAP) 127/61 127/61 (83) 130/53 (78) 133/52 (79) Pulse Ox 95 95 94 O2 Delivery Nasal Cannula Nasal Cannula Nasal Cannula O2 Flow Rate 3.0 3.0 3.0 05/04/17 05/04/17 05/04/17 05/04/17 01:00 01:55 02:02 02:57 Temp 96.4 97.5 96.4 97.5 Pulse 63 65 65 Resp 18 18 18 18 B/P (MAP) 136/60 134/57 (82) 148/64 Pulse Ox 94 95 O2 Delivery Nasal Cannula Nasal Cannula O2 Flow Rate 3.0 3.0 05/04/17 05/04/17 05/04/17 05/04/17 02:57 03:12 04:12 04:32 Temp 97.5 97.7 97.9 97.5 97.7 97.9 Pulse 65 66 67 Resp 18 18 18 18 B/P (MAP) 148/64 (92) 150/64 (92) 137/64 (88) Pulse Ox 93 94 95 94 O2 Delivery Nasal Cannula Nasal Cannula Nasal Cannula Nasal Cannula O2 Flow Rate 3.0 3.0 3.0 3.0 05/04/17 05/04/17 05/04/17 05/04/17 05:15 07:00 07:23 08:00 Temp 97.9 97.5 97.9 97.5 Pulse 67 65 Resp 18 18 B/P (MAP) 131/55 (80) 151/71 (97) Pulse Ox 93 95 93 O2 Delivery Nasal Cannula Nasal Cannula Nasal Cannula Nasal Cannula O2 Flow Rate 3.0 2.0 2.0 2.0 05/04/17 05/04/17 05/04/17 05/04/17 08:23 09:58 10:28 11:00 Temp 98.6 98.6 Pulse 62 Resp 16 16 2 18 B/P (MAP) 132/60 (84) Pulse Ox 95 95 95 97 O2 Delivery Nasal Cannula Nasal Cannula Nasal Cannula Nasal Cannula O2 Flow Rate 2.0 2.0 2.0 2.0 Intake and Output 6/05/03/17 05/04/17 14:59 22:59 06:59 Intake Total 2870 ml 1190 ml Output Total 200 ml 650 ml 215 ml Balance -200 ml 2220 ml 975 ml ALEXANDRA ULRICH MD May 04, 2017 14:55
--- NOTE | 2017-05-04 15:23 | RAD ---
Indication: Cough. Time of exam 1511 hours. Correlation is made with prior study from 05/01/2017. The heart is enlarged but stable. There appears to be minimal bibasilar subsegmental atelectasis. Otherwise the lungs are clear. No effusion is seen. There is no pneumothorax. There are postop changes of bilateral shoulder arthroplasties. Impression: Bibasilar subsegmental atelectasis.
[2017-05-04] MEDS ORDERED: guaiFENesin DM 200MG/20MG 10 ML SYRUP PO PRN (17:00)
[2017-05-05] MEDS: oxyCODONE/APAP 5/325 1 TAB TABLET PO PRN ×2 (02:54→10:51)
[2017-05-05 03:00] VITALS: BP 138/76
[2017-05-05 07:00] VITALS: BP 135/63
[2017-05-05 11:00] VITALS: BP 120/50
[2017-05-05] MEDS ORDERED: POLYETHYLENE GLYCOL 3350 17 GM PACKET. PO ONE (11:00)
[2017-05-05] MEDS ORDERED: POLYETHYLENE GLYCOL 3350 17 GM PACKET. PO PRN (11:00)
[2017-05-05 15:00] VITALS: BP 150/60
[2017-05-05] MEDS: fentaNYL PF VIAL 100 MCG/2 ML VIAL IV PRN (16:29)
--- NOTE | 2017-05-05 17:18 | PDOC ---
PROGRESS NOTES Chief Complaint Chief Complaint Traumatic R hip fx ASSESSMENT AND PLAN: 1. R humeral fx: s/p ORIF 2. L high frontal scalp hematoma - cold then warm compress 3. Pain control: adequate 4. Hypothyroidism: chronic. cont home synthroid. check TSH 5 HTN: borderline high. restart home BP med 6. Obesity BMI 31.6 History of Present Illness History of Present Illness doing ok, pain tolerable Vitals Vitals Vital Signs Date Time Temp Pulse Resp B/P (MAP) Pulse Ox O2 Delivery O2 Flow Rate FiO2 05/05/17 16:29 16 Room Air 05/05/17 16:06 96 2.0 05/05/17 15:00 97.1 59 150/60 (90) 97.1 Physical Exam General: Alert, Cooperative, No acute distress Heart: Regular rate Lungs: Clear Abdomen: Soft Extremities: Other (tenderness over the right shoulder. No ecchymosis. The skin is intact over the fracture. The deltoid motor function is minimal due to the pain but does seem intact. Sensation in the axillary nerve distribution is normal. She demonstrated spontaneous motor function of the hand including radial ulnar and median nerves. Pulses intact. Sensation normal in the right upper extremity.) Skin: No breakdown, Other (skin intact over the fracture.) DENISE BARRERA MD May 05, 2017 17:18
[2017-05-05] MEDS: CITALOPRAM 10 MG TABLET. PO SCH (18:30)
[2017-05-05] MEDS: hydroCHLOROthiazide 12.5 MG CAPSULE PO SCH (18:31)
[2017-05-05] MEDS: LOSARTAN POTASSIUM 50 MG TABLET. PO SCH (18:31)
[2017-05-05] MEDS: LEVOTHYROXINE 100 MCG TABLET PO SCH (18:32)
[2017-05-05] MEDS: PANTOPRAZOLE 40 MG TABLET.DR. PO SCH (18:32)
[2017-05-05 19:00] VITALS: BP 151/63
--- NOTE | 2017-05-05 19:25 | PDOC ---
ORTHO PROGRESS NOTES Subjective The patient says that she was doing much better earlier today. She has worked with OT twice today on hand, wrist, and elbow exercises. After the second time her abduction pillow was placed on her abdomen and since then she has had increasing shoulder pain. She recently took pain medication, but her pain is still severe. Her HV has had minimal output today. She is still coughing. No fevers, chills, nausea, vomiting, chest pain. Shortness of breath is improving. Post-op Day: 2 Procedure R reverse total shoulder arthroplasty Vitals Vital Signs Date Time Temp Pulse Resp B/P (MAP) Pulse Ox O2 Delivery O2 Flow Rate FiO2 05/05/17 18:31 59 150/60 05/05/17 16:29 16 Room Air 05/05/17 16:06 96 2.0 05/05/17 15:00 97.1 97.1 Labs Laboratory Tests Test 05/03/17 22:10 05/04/17 00:00 05/04/17 07:25 White Blood Count 6.9 x10^3/uL (4.0-11.0) 9.6 x10^3/uL (4.0-11.0) Red Blood Count 2.68 x10^6/uL (3.50-5.40) 4.05 x10^6/uL (3.50-5.40) Hemoglobin 7.4 g/dL (12.0-15.5) 11.2 g/dL (12.0-15.5) Hematocrit 23.7 % (36.0-47.0) 34.7 % (36.0-47.0) Mean Corpuscular Volume 88 fL (79-100) 86 fL (79-100) Mean Corpuscular Hemoglobin 28 pg (25-35) 28 pg (25-35) Mean Corpuscular Hemoglobin Concent 31 g/dL (31-37) 32 g/dL (31-37) Red Cell Distribution Width 15.3 % (11.5-14.5) 14.9 % (11.5-14.5) Platelet Count 119 x10^3/uL (140-400) 157 x10^3/uL (140-400) Sodium Level 136 mmol/L (136-145) Potassium Level 3.9 mmol/L (3.5-5.1) Chloride Level 103 mmol/L (98-107) Carbon Dioxide Level 19 mmol/L (21-32) Anion Gap 14 (6-14) Blood Urea Nitrogen 13 mg/dL (7-20) Creatinine 0.5 mg/dL (0.6-1.0) Estimated GFR (Cockcroft-Gault) 117.0 Glucose Level 106 mg/dL (70-99) Calcium Level 7.1 mg/dL (8.5-10.1) 25-Hydroxy Vitamin D Total 29.4 ng/mL (30.0-100.0) Neutrophils (%) (Auto) 88 % (31-73) Lymphocytes (%) (Auto) 6 % (24-48) Monocytes (%) (Auto) 6 % (0-9) Eosinophils (%) (Auto) 0 % (0-3) Basophils (%) (Auto) 0 % (0-3) Neutrophils # (Auto) 8.5 x10^3uL (1.8-7.7) Lymphocytes # (Auto) 0.6 x10^3/uL (1.0-4.8) Monocytes # (Auto) 0.6 x10^3/uL (0.0-1.1) Eosinophils # (Auto) 0.0 x10^3/uL (0.0-0.7) Basophils # (Auto) 0.0 x10^3/uL (0.0-0.2) X-Rays Postoperative xrays reveal a well placed reverse total shoulder arthroplasty with no adjacent fractures or dislocations. Notes RIGHT UPPER EXTREMITY dressing clean, dry, and intact. HV in place with minimal ss drainage. Removed with tip intact. incision clean, dry, and intact with maegan in place. full elbow extension, supination to neutral. minimal swelling of forearm and distal. neurovascularly intact distally. Problems: (1) Proximal humerus fracture Assessment and Plan The patient is a 87 year old right-hand dominant female who presented with a displaced proximal humerus fracture POD 2 status post right reverse total shoulder arthroplasty. She was doing very well until just recently when her pain increased significantly. I was concerned about instability with the amount of pain she was having, so I ordered new xrays. There are no signs of instability. She is well located. I removed the abduction pillow and extended her elbow and checked on her an hour later and her pain was significantly improved. She can hold 1 lb in her right hand. perform hand, wrist, and elbow exercises only. no shoulder movement. She should keep her elbow in front or beside her at all times. She can follow-up in my office in 1 week for staple removal. Pain control She is ok to unclick her sling while sitting supported so that her elbow and neck can have a break. Problem Qualifiers (1) Proximal humerus fracture: Encounter type: initial encounter Fracture type: closed Fracture morphology : other fracture Fracture alignment: displaced Laterality: right Qualified Codes: S42.291A - Other displaced fracture of upper end of right humerus, initial encounter for closed fracture ЮЛИЯ BUENO MD May 05, 2017 19:25
--- NOTE | 2017-05-05 19:39 | PDOC4 ---
Operative Note Operative Note Preoperative Diagnosis: 1. Right shoulder 4 part humerus fracture 2. Right shoulder biceps tendonitis. Postoperative Diagnosis: 1. Right shoulder 4 part humerus fracture 2. Right shoulder biceps tendonitis. Procedure Performed: 1. Right reverse shoulder replacement, CPT 03959. 2. Right shoulder open biceps tendon transfer, CPT 30095. 3. Right shoulder greater tuberosity open reduction internal fixation, CPT 83191 Surgeon: Alyssa Bueno MD Hand Sole Sewer: Dejuan Ortega PA-C Anesthesia: General. Estimated Blood Loss: 150 mL. Complications: None. Implants: Biomet Comprehensive Reverse Shoulder 10 mm fracture stem cemented in place with Palacos R cement and a 11 mm distal plug; 36mm standard poly liner, 0 Retentive liner 5 mm cup; 36 mm glenosphere and a 30 mm center screw; 30, 15, 25,15 mm peripheral fixed angle screws. Indications: This patient is an 87-year- old right hand dominant female who fell from standing height and sustained a 4-part proximal humerus fracture. Non- operative treatment including living with her shoulder as is and modifying her activity was discussed with the patient and her family. We also discussed right shoulder replacement with a reverse total shoulder arthroplasty. The risks of surgery including the risk of undergoing anesthesia, bleeding, infection, erika- prosthetic fracture, post-operative stiffness, instability, possibility for revision, blood clots, and even were discussed at length. The benefits of surgery including pain relief and functional improvement of the shoulder were discussed along with the postoperative course of immobilization, weight restrictions, and physical therapy required after surgery. After a thorough discussion of the risks and benefits of a right reverse total shoulder replacement, the patient elected to proceed with surgery. She exhibited understanding of the risks and benefits of surgery, and all questions were answered. Operative Procedure: The patient was identified and taken to the operating room. IV antibiotics were given preoperatively. The patient was placed under adequate general anesthesia in the beach chair position and the right shoulder was prepped and draped in the standard surgical fashion. A deltopectoral incision was made down through skin and subcutaneous tissue. The cephalic vein was identified, mobilized laterally, and protected throughout the case. Subdeltoid adhesions were released , and fracture hematoma was encountered. The biceps tendon was identified in the groove. The greater tuberosity was fractured and retracted posteriorly, but some of the lesser tuberosity was still attached to it. The head was a separate fragment and it was extended into valgus. The biceps tendon was traced into the rotator interval, which was thoroughly released to the base of the coracoid. The biceps tendon was then released and tagged. Two #5 ethibond sutures were placed into each tuberosity fragment at the bone tendon interface to gain control of the tuberosity fragments. An osteotome was used to separate the fragments and locate the humeral head. The humeral head was found to be collapsed and devoid of tissue; it was removed with a laura. Attention was turned to the glenoid. Circumferential exposure was performed with a complete 360 degree capsular release. The glenoid still had considerable cartilage remaining, which was removed with a bone. The glenoid was prepared in standard fashion with medialized and inferior reaming to accept a 25 mm base plate which was secured with a 35 mm center screw and 4 fixed angle peripheral screws. The 36 mm glenosphere was placed with minimal inferior offset with a nice tight fit. At this time attention was returned to the humeral side. The canal was irrigated thoroughly and all remaining bony fragments were removed. The fracture occurred distal to the metaphyseal flare of the humerus, and the canal was very capacious with thin cortices. The canal was reamed down the orthopedic axis to accept a 14 mm cemented prosthesis. The provisional stem was used to trial and a 0 liner was found to have good stability. Two holes were placed in the anterolateral aspect of the proximal humeral shaft, straddling the bicipital groove. Two #5 ethibond sutures were placed through the holes in anticipation of later tuberosity reduction. The canal was pulse lavaged and dried in preparation of cementing. An 11 mm cement restrictor was placed distally. The 10 mm fracture stem was cemented into place in 10 degrees of retroversion at a pre-determined height. After the cement was completely cured, trial liners were used and a 5mm tray 0 liner combination was found to have the best stability. All humeral trial components were removed and the real components were placed with good stability achieved in all planes. The #5 Fiberwire sutures were placed circumferentially around the prosthesis and into the opposite tuberosities. The sutures from the humeral shaft were placed into the tuberosities that had been joined together. This completed the greater tuberosity open reduction internal fixation, CPT 18911. A #2 Fiberwire was used to completely close the rotator interval. This completed the reverse shoulder replacement, CPT 01420. The biceps tendon was and transferred to the pectoralis with a 0 Ethibond suture, CPT 04423. Intra-articular local anesthetic was injected into the deep tissues after a copious pulse lavage. A medium hemovac was placed in the deep space prior to approximating the deltopectoral interval with 0 ethibond. Closure was performed in layers with 3-0 monocryl for deep tissues, and maegan for skin. Sterile dressings and ultra-sling were applied. The patient was awakened from anesthesia and transferred to the stretcher and recovery room in awake, alert, and stable condition. I was present for the entire case. My restaurant assistant manager was essential during the case for prepping, draping, positioning, retraction, and skin closure. ALYSSA BUENO MD May 05, 2017 19:39
[2017-05-05] MEDS ORDERED: oxyCODONE IR 5 MG TABLET PO PRN (20:00)
[2017-05-05] MEDS: ENOXAPARIN 40 MG/0.4 ML SYRINGE. SQ SCH (20:29)
[2017-05-05] MEDS: oxyCODONE IR 5 MG TABLET PO PRN (20:30)
--- NOTE | 2017-05-05 21:59 | RAD ---
Two-view right shoulder study History: Postoperative study. New onset of right shoulder pain today. Comparison: May 03, 2017. Findings: Again seen is a right shoulder arthroplasty which is unchanged in appearance and position from the previous study. Again seen is a fracture of the lateral aspect of the proximal right humerus in the region of the greater tubercle. This is unchanged. The humeral stem is located centrally within the intramedullary canal of the proximal right humerus in both views. No osteolytic process is seen. IMPRESSION: Stable right shoulder arthroplasty. Unchanged fracture of the proximal right humerus in the region of the greater tubercle.
[2017-05-05 22:30] VITALS: BP 130/58
[2017-05-06] MEDS: oxyCODONE IR 5 MG TABLET PO PRN ×2 (01:42→06:24)
[2017-05-06 03:00] VITALS: BP 132/59
[2017-05-06] MEDS: LEVOTHYROXINE 100 MCG TABLET PO SCH (06:25)
[2017-05-06 07:00] VITALS: BP 117/52
[2017-05-06] MEDS: LOSARTAN POTASSIUM 50 MG TABLET. PO SCH (08:16)
[2017-05-06] MEDS: CITALOPRAM 10 MG TABLET. PO SCH (08:16)
[2017-05-06] MEDS: PANTOPRAZOLE 40 MG TABLET.DR. PO SCH (08:16)
[2017-05-06] MEDS: hydroCHLOROthiazide 12.5 MG CAPSULE PO SCH (08:16)
[2017-05-06] MEDS ORDERED: CALC200T23 PO (09:37)
[2017-05-06] MEDS ORDERED: POLY17PO3 PO (09:37)
[2017-05-06] MEDS ORDERED: OXYC5TAB PO (09:37)
[2017-05-06 10:20] LABS: BASO % 1 % (0-3); EOS % 6 % (0-3); HEMATOCRIT 30.3 % (36.0-47.0); HEMOGLOBIN 10.1 g/dL (12.0-15.5); LYMPH % 17 % (24-48); MEAN CORPUSCULAR HEMOGLOBIN 28 pg (25-35); MEAN CORPUSCULAR HGB CONC 33 g/dL (31-37); MEAN CORPUSCULAR VOLUME 85 fL (79-100); MONO % 8 % (0-9); NEUT % 68 % (31-73); PLATELET COUNT 154 x10^3/uL (140-400); RED BLOOD COUNT 3.55 x10^6/uL (3.50-5.40); RED CELL DISTRIBUTION WIDTH 14.9 % (11.5-14.5); WHITE BLOOD COUNT 5.5 x10^3/uL (4.0-11.0)
[2017-05-06 10:45] LABS: CALCIUM 8.4 mg/dL (8.5-10.1); CREATININE 0.9 mg/dL (0.6-1.0); GFR 59.4; POTASSIUM 3.8 mmol/L (3.5-5.1)
[2017-05-06 11:00] VITALS: BP 117/48
--- NOTE | 2017-05-06 11:57 | PDOC ---
PROGRESS NOTES Subjective Subjective The patient says she feels much better today. She is out of the sling today and states that someone said she could be out of it. She has been letting her arm relax by her side and doing hand wrist elbow exercises. Did not hear any coughing today. No fevers, chills, nausea, vomiting, chest pain. She does not complain of any shortness of breath today. Post-op Day: 3 Procedure R reverse total shoulder arthroplasty Objective Vital Signs Vital Signs Date Time Temp Pulse Resp B/P (MAP) Pulse Ox O2 Delivery O2 Flow Rate FiO2 05/06/17 11:00 97.7 54 20 117/48 (71) 94 Nasal Cannula 2.0 97.7 Physical Exam Patient lying on bed with back elevated. Right elbow is propped forward on pillow but still slightly behind the hip. Right upper extremity dressing clean, dry, and intact. HV drain hole dressing removed today. Incision site checked with no drainage or erythema and dressing replaced. Full elbow extension, supination to neutral. minimal swelling of forearm and distal. neurovascularly intact distally. Labs Laboratory Tests Test 05/06/17 10:00 White Blood Count 5.5 x10^3/uL (4.0-11.0) Red Blood Count 3.55 x10^6/uL (3.50-5.40) Hemoglobin 10.1 g/dL (12.0-15.5) Hematocrit 30.3 % (36.0-47.0) Mean Corpuscular Volume 85 fL (79-100) Mean Corpuscular Hemoglobin 28 pg (25-35) Mean Corpuscular Hemoglobin Concent 33 g/dL (31-37) Red Cell Distribution Width 14.9 % (11.5-14.5) Platelet Count 154 x10^3/uL (140-400) Neutrophils (%) (Auto) 68 % (31-73) Lymphocytes (%) (Auto) 17 % (24-48) Monocytes (%) (Auto) 8 % (0-9) Eosinophils (%) (Auto) 6 % (0-3) Basophils (%) (Auto) 1 % (0-3) Neutrophils # (Auto) 3.8 x10^3uL (1.8-7.7) Lymphocytes # (Auto) 1.0 x10^3/uL (1.0-4.8) Monocytes # (Auto) 0.4 x10^3/uL (0.0-1.1) Eosinophils # (Auto) 0.3 x10^3/uL (0.0-0.7) Basophils # (Auto) 0.0 x10^3/uL (0.0-0.2) Sodium Level 134 mmol/L (136-145) Potassium Level 3.8 mmol/L (3.5-5.1) Chloride Level 100 mmol/L (98-107) Carbon Dioxide Level 34 mmol/L (21-32) Anion Gap 0 (6-14) Blood Urea Nitrogen 14 mg/dL (7-20) Creatinine 0.9 mg/dL (0.6-1.0) Estimated GFR (Cockcroft-Gault) 59.4 Glucose Level 174 mg/dL (70-99) Calcium Level 8.4 mg/dL (8.5-10.1) Laboratory Tests Test 05/06/17 10:00 White Blood Count 5.5 x10^3/uL (4.0-11.0) Red Blood Count 3.55 x10^6/uL (3.50-5.40) Hemoglobin 10.1 g/dL (12.0-15.5) Hematocrit 30.3 % (36.0-47.0) Mean Corpuscular Volume 85 fL (79-100) Mean Corpuscular Hemoglobin 28 pg (25-35) Mean Corpuscular Hemoglobin Concent 33 g/dL (31-37) Red Cell Distribution Width 14.9 % (11.5-14.5) Platelet Count 154 x10^3/uL (140-400) Neutrophils (%) (Auto) 68 % (31-73) Lymphocytes (%) (Auto) 17 % (24-48) Monocytes (%) (Auto) 8 % (0-9) Eosinophils (%) (Auto) 6 % (0-3) Basophils (%) (Auto) 1 % (0-3) Neutrophils # (Auto) 3.8 x10^3uL (1.8-7.7) Lymphocytes # (Auto) 1.0 x10^3/uL (1.0-4.8) Monocytes # (Auto) 0.4 x10^3/uL (0.0-1.1) Eosinophils # (Auto) 0.3 x10^3/uL (0.0-0.7) Basophils # (Auto) 0.0 x10^3/uL (0.0-0.2) Sodium Level 134 mmol/L (136-145) Potassium Level 3.8 mmol/L (3.5-5.1) Chloride Level 100 mmol/L (98-107) Carbon Dioxide Level 34 mmol/L (21-32) Anion Gap 0 (6-14) Blood Urea Nitrogen 14 mg/dL (7-20) Creatinine 0.9 mg/dL (0.6-1.0) Estimated GFR (Cockcroft-Gault) 59.4 Glucose Level 174 mg/dL (70-99) Calcium Level 8.4 mg/dL (8.5-10.1) Assessment Assessment The patient is a 87 year old right-hand dominant female who presented with a displaced proximal humerus fracture POD 3 status post right reverse total shoulder arthroplasty. She is doing much better today after her pain increased significantly yesterday. Dislocation ruled out and pain was likely positional. Problems: (1) Proximal humerus fracture Plan Plan of Care She can hold 1 lb in her right hand. perform hand, wrist, and elbow exercises only. no shoulder movement. She should keep her elbow in front or beside her at all times with help of pillow padding. She should follow up in [facility] office on or 14 May for staple removal. Pain control She is ok to unclick her sling while sitting supported so that her elbow and neck can have a break, but she needs to continue to have it in place on her arm. Problem Qualifiers (1) Proximal humerus fracture: Encounter type: initial encounter Fracture type: closed Fracture morphology : other fracture Fracture alignment: displaced Laterality: right Qualified Codes: S42.291A - Other displaced fracture of upper end of right humerus, initial encounter for closed fracture BAILEY PAREKH PAC May 06, 2017 11:57
[2017-05-06 15:00] VITALS: BP 111/57
--- NOTE | 2017-05-06 17:17 | PATHOLOGY ---
PATHOLOGY REPORT * * * * * * * * FINAL DIAGNOSIS: Humeral head, right reverse shoulder arthroplasty: - Focal fragmentation of bony trabeculae and recent intertrabecular hemorrhage consistent with fracture. COMMENT: There is no evidence of malignancy. ([facility]; 05/06/2017) REPORT ELECTRONICALLY SIGNED BY: Compa Durand M.D. DATE/TIME: 05/06/2017 17:17 * * * * * * * * GROSS PATHOLOGY: Received in formalin labeled "Lora Evans, right shoulder bone and tissue," is a partial humeral head measuring 5.0 x 4.8 x 3.1 cm in greatest dimensions. The articular surface is pale vasquez and granular. Sectioning reveals a yellow-vasquez marrow space, with the distal most aspect hemorrhagic in appearance, consistent with a fracture site. Business Administrator tissue from the fracture site is submitted in cassette A1, following decalcification. ([facility]; 05/05/2017) INITIAL CPT CODE(S): A; 31362, 22149 Professional services performed [place] [facility] [place] [address] Technical services performed by [facility] at [address] [place] [address] [address] [address]. SPECIMEN(S) RECEIVED: A.Right shoulder bone and tissue CLINICAL HISTORY: Right proximal humerus fracture PATIENT: LORA EVANS /AGE: 5 1930 (Age: 87) PATIENT #: [id number] ALT CASE #: SPECIMEN COLLECTION DATE: 05/03/2017 SPECIMEN RECEIVED DATE: 05/04/2017 [facility] - [address] [place] [address] - PHONE: [phone] * * * END OF REPORT * * *
== END 2017-05-06 17:17 | disposition home health service (06) | DRG 483 ==
LOC: ER 18:32 → 4 NORTH 21:24
PROVIDERS: ADMIT Internal Medicine; ATTEND Internal Medicine
PROC: 0RRJ00Z Replacement of Right Shoulder Joint with Reverse Ball and Socket Synthetic Substitute, Open Approach (ICD-10-PCS; principal; 2017-05-01)
PROC: 0PSC04Z Reposition Right Humeral Head with Internal Fixation Device, Open Approach (ICD-10-PCS; 2017-05-01)
PROC: 0LX Tendons, Transfer (ICD-10-PCS; 2017-05-01)
PROC: 30233N1 Transfusion of Nonautologous Red Blood Cells into Peripheral Vein, Percutaneous Approach (ICD-10-PCS; 2017-05-03)
DX: S42.251A Displaced fracture of greater tuberosity of right humerus, initial encounter for closed fracture (principal); S00.03XA Contusion of scalp, initial encounter; E03.9 Hypothyroidism, unspecified; K21.9 Gastro-esophageal reflux disease without esophagitis; M75.20 Bicipital tendinitis, unspecified shoulder; F32.9 Major depressive disorder, single episode, unspecified; W18.30XA Fall on same level, unspecified, initial encounter; Z96.612 Presence of left artificial shoulder joint; I10 Essential (primary) hypertension; E66.9 Obesity, unspecified; Z88.1 Allergy status to other antibiotic agents; Z88.8 Allergy status to other drugs, medicaments and biological substances; Z88.6 Allergy status to analgesic agent; Z82.49 Family history of ischemic heart disease and other diseases of the circulatory system; Z68.32 Body mass index [BMI] 32.0-32.9, adult; Z87.01 Personal history of pneumonia (recurrent); Y93.89 Activity, other specified; Y92.89 Other specified places as the place of occurrence of the external cause
CPT/HCPCS: 36415; 70450; 71010; 72125; 73030; 73060; 73080; 73130; 80048; 80053; 82306; 85007; 85027; 85610; 85730; 86850; 86900; 86901; 86920; 88304; 88311; 93005; 94620; 96374; 96376; A6539; C1713; G0238; J0171; J0690; J1100; J1650; J1885; J2001; J2250; J2270; J2405; J2704; J2710; J2795; J3010; J3490; J7120; P9016; 97110; 97116; 97530; 97535; 99285-25; C1769